=== PATIENT | female | born 1950 | race Caucasian/White ===

== ENCOUNTER 2019-10-30 08:52 | Outpatient (CLI) | payer MEDICARE, SELFPAY ==
--- NOTE | ~2019-10-30 | MM_ITS ---
EXAMINATION: MM screening alhaji BI w leonor HISTORY: Screening mammogram, family history of breast cancer in her mother. TECHNIQUE: Craniocaudal and mediolateral oblique 3-D tomosynthesis images were obtained and synthetic 2-D images were generated. CAD analysis was submitted and interpreted. COMPARISON: 10/23/2018, 02/20/2016, 04/18/2014 BREAST PARENCHYMAL COMPOSITION: There are scattered areas of fibroglandular density. FINDINGS: RIGHT BREAST: There is a possible mass in the middle/posterior third of the outer right breast best a ppreciated 7 cm from the nipple on the craniocaudal view. LEFT BREAST: There is no evidence of suspicious mass, calcification, or architectural distortion to s uggest malignancy. There has been no significant interval change. IMPRESSION: 1. Possible right breast mass. 2. Additional mammographic views and possible breast ultrasound are recommended. BI-RADS Category 0: Incomplete: Needs additional imaging evaluation. Reviewed, dictated and finalized at location A. CING MACHINE OPERATOR IMPRESSION: 1. Possible right breast mass. 2. Additional mammographic views and possible breast ultrasound are recommended . BI-RADS Category 0: Incomplete: Needs additional imaging evaluation.
== END 2019-10-30 08:53 | disposition home or self-care (01) ==
DX: Z12.31 Encounter for screening mammogram for malignant neoplasm of breast (principal); R92.8 Other abnormal and inconclusive findings on diagnostic imaging of breast
CPT/HCPCS: 77063; 77067

== ENCOUNTER 2019-11-06 14:40 | Outpatient (CLI) | payer MEDICARE, SELFPAY ==
--- NOTE | ~2019-11-06 | MM_ITS ---
EXAMINATION: MM diagnostic mammo unilat RT HISTORY: Possible right breast mass in the middle/posterior third of the outer right breast 7 cm from nipple on craniocaudal view reported on 10/30/2019 bilateral digital screening mammogram TECHNIQUE: Additional 3-D tomosynthesis images and rolled medial and rolled lateral craniocaudal view s of the right breast of were performed and synthetic 2-D images were generated. CAD analysis was sub mitted and interpreted. COMPARISON: 10/30/2019 bilateral digital screening mammogram FINDINGS: No suspicious mass or architectural distortion is evident. The questioned mass is not repro duced on these supplemental views. IMPRESSION: 1. No mammographic evidence of malignancy 2. Routine annual mammographic screening is recommended. BI-RADS Category 1: Negative Reviewed, dictated and finalized at location A. BER
== END 2019-11-06 14:41 | disposition home or self-care (01) ==
DX: R92.8 Other abnormal and inconclusive findings on diagnostic imaging of breast (principal)
CPT/HCPCS: 77065

== ENCOUNTER 2020-08-13 09:40 | Outpatient (NON) | payer MEDICARE, SELFPAY ==
[2020-08-13 23:47] LABS: SARS-CoV-2 RNA PCR Negative
== END 2020-08-13 09:41 ==
LOC: ANHCOVIDDT 09:43
PROVIDERS: Visit Provider Family Medicine
DX: R07.89 Other chest pain (principal); Z20.828 Contact with and (suspected) exposure to other viral communicable diseases
CPT/HCPCS: 87635; C9803; U0003

== ENCOUNTER → 2020-11-28 12:20 | Outpatient (CLI) | payer MEDICARE, SELFPAY ==
--- NOTE | ~2020-11-28 | XR_ITS ---
EXAMINATION: XR chest 2V DATE: 11/28/2020 13:22 INDICATION: Shortness of breath. TECHNIQUE: Frontal and lateral views of the chest were obtained. COMPARISON: CT abdomen and pelvis 06/13/2018 FINDINGS: There is mild atelectasis in the lower lung zones. There is mild scarring at right lung ape x. No pleural effusion or pneumothorax. The heart size is normal. IMPRESSION: 1. Mild atelectasis in the lower lung zones and mild scarring at right lung apex. Reviewed, dictated and finalized at location A. L FISHERMAN IMPRESSION: 1. Mild atelectasis in the lower lung zones and mild scarring at right lung ape x.
== END ==
PROVIDERS: PCP Physician Assistant Medical; Visit Provider Physician Assistant Medical
DX: R06.02 Shortness of breath (principal); R91.8 Other nonspecific abnormal finding of lung field
CPT/HCPCS: 71046

== ENCOUNTER 2020-12-06 10:03 | Outpatient (CLI) | payer MEDICARE, SELFPAY ==
--- NOTE | ~2020-12-06 | CT_ITS ---
EXAMINATION: CT chest abdomen wo con DATE: 12/06/2020 16:09 CELL BIOLOGIST INDICATION: Shortness of breath. Cough. Esophageal reflux. TECHNIQUE: Computed tomography (CT) of the chest and abdomen was performed without intravenous contra st. The dose-length product was 327.03 mGy-cm. Automated exposure control and iterative reconstructio n technique were employed. COMPARISON: The dated 06/13/2018 FINDINGS: CHEST CT: Heart size normal. No significant pleural or pericardial effusion. No thoracic lymphadenopathy. There is mild atherosclerosis of the aorta. Calcified granuloma right upper lobe. There is right middle lo be atelectasis/scarring. There is lingular atelectasis. There is dependent atelectasis. There is a 4 mm pleural-based. Fissural nodule on the right, image 65. No endobronchial lesions. ABDOMEN CT: The liver, spleen, pancreas, adrenal glands are unremarkable. There are bilateral renal stones. There are bilateral renal cysts. No definite ureteral stones are identified. Gallbladder is present. Nonob structive bowel gas pattern. No lymphadenopathy. There is a soft tissue nodule in the left upper abdo men adjacent to the fundus of the stomach anteriorly, likely an accessory splenule. Small fat-contain ing umbilical hernia. There is scoliosis. Moderate thoracic and lumbar spondylosis. IMPRESSION: 1. Fissural nodule measuring 4 mm on the right, likely benign. Follow-up low dose CT chest in 12 mk hs recommended. 2: Right middle lobe and lingular atelectasis/scarring. 3: Nonobstructing bilateral nephrolithiasis. 4: Low-density lesions in both kidneys, most likely cysts, visualized on prior CT dated 06/13/2018. 5: Scoliosis with moderate thoracic and lumbar spondylosis. Reviewed, dictated and finalized at location A. BIOLOGIST IMPRESSION: 1. Fissural nodule measuring 4 mm on the right, likely benign. Follow-up low do se CT chest in 12 months recommended. 2: Right middle lobe and lingular atelectasis/scarring. 3: Nonobstructing bilateral nephrolithiasis. 4: Low-density lesions in both kidneys, most likely cysts, visualized on prior CT dated 06/13/2018. 5: Scoliosis with moderate thoracic and lumbar spondylosis.
== END 2020-12-06 10:04 | disposition home or self-care (01) ==
PROVIDERS: PCP Physician Assistant Medical; Visit Provider Physician Assistant Medical
DX: R06.02 Shortness of breath (principal); N20.0 Calculus of kidney; R91.8 Other nonspecific abnormal finding of lung field; M41.9 Scoliosis, unspecified; M47.894 Other spondylosis, thoracic region; M47.896 Other spondylosis, lumbar region
CPT/HCPCS: 71250; 74150

== ENCOUNTER 2020-12-17 08:34 | Outpatient (CLI) | payer MEDICARE, SELFPAY ==
--- NOTE | 2020-12-17 08:39 | EST_ITS ---
Patient Info Name: Myrtle Wells Age: 70 years : 1950 Gender: Female Ht: 64 in Wt: 148 lbs BSA: 1.75 m2 HR: 70 bpm BP: 122 / 86 mmHg Heart Rhythm: Sinus Rhythm Exam Date: 12/17/2020 9:30 AM Exam Location: [facility] Patient Status: Outpatient Admit Date: 12/17/2020 Staff Ordering Physician: Tod Lares PA-C Wool Hat Hydraulicker: Orin Hamilton RDCS Attending Provider: Tod Lares PA-C Exercise Technologist: Ramila Drummond CT Exam Type: CA stress echo Study Info Indications R06.02 - Shortness of breath Treadmill exercise stress echocardiogram is performed. Summary 1. 1. Negative Kelvin exercise stress test for ischemic ST changes by ECG criteria. 2. 2. Mildly reduced functional capacity, achieving 7 METs of workload. 3. 3. Appropriate HR response to exercise. 4. 4. Appropriate HR recovery at 1 minute post exercise. 5. 5. Negative stress echocardiogram for ischemia by wall motion analysis. 6. 6. Patient informed of the above results. Stress Echo Findings Left Ventricle Appropriate increase in LV endocardial thickening with systole. Appropriate augmentation of contractility with systole. No wall motion abnormality. Left Ventricle Normal LV systolic function, no wall motion abnormality. Protocol: Kelvin Stress ECG Details Stage: REST Duration (min): 1 min : 23 sec Speed (mph): 0.0 Grade (%): 0 HR (bpm): 66 SBP (mmHg): 122 DBP (mmHg): 86 METS: --- Stage: REST Duration (min): 17 min : 9 sec Speed (mph): 0.0 Grade (%): 0 HR (bpm): 69 SBP (mmHg): 122 DBP (mmHg): 86 METS: --- Stage: STAGE 1 Duration (min): 1 min : 0 sec Speed (mph): 1.7 Grade (%): 10 HR (bpm): 106 SBP (mmHg): 122 DBP (mmHg): 86 METS: --- Stage: STAGE 1 Duration (min): 2 min : 0 sec Speed (mph): 1.7 Grade (%): 10 HR (bpm): 116 SBP (mmHg): 122 DBP (mmHg): 86 METS: --- Stage: STAGE 1 Duration (min): 3 min : 0 sec Speed (mph): 1.7 Grade (%): 10 HR (bpm): 124 SBP (mmHg): 163 DBP (mmHg): 91 METS: --- Stage: STAGE 2 Duration (min): 1 min : 0 sec Speed (mph): 2.5 Grade (%): 12 HR (bpm): 136 SBP (mmHg): 163 DBP (mmHg): 91 METS: --- Stage: STAGE 2 Duration (min): 2 min : 0 sec Speed (mph): 2.5 Grade (%): 12 HR (bpm): 141 SBP (mmHg): 150 DBP (mmHg): 94 METS: --- Stage: STAGE 2 Duration (min): 2 min : 5 sec Speed (mph): 0.0 Grade (%): 0 HR (bpm): 145 SBP (mmHg): 150 DBP (mmHg): 94 METS: --- Stage: RECOVERY Duration (min): 0 min : 54 sec Speed (mph): 0.0 Grade (%): 0 HR (bpm): 101 SBP (mmHg): 150 DBP (mmHg): 94 METS: --- Stage: RECOVERY Duration (min): 1 min : 54 sec Speed (mph): 0.0 Grade (%): 0 HR (bpm): 90 SBP (mmHg): 150 DBP (mmHg): 94 METS: --- Stage: RECOVERY Duration (min): 2 min : 54 sec Speed (mph): 0.0 Grade
== END 2020-12-17 08:35 | disposition home or self-care (01) ==
PROVIDERS: PCP Physician Assistant Medical; Visit Provider Physician Assistant Medical
DX: R06.02 Shortness of breath (principal)
CPT/HCPCS: 93351

== ENCOUNTER 2021-01-15 07:50 | Outpatient (CLI) | payer MEDICARE, SELFPAY ==
--- NOTE | 2021-01-17 13:27 | WPDPFTINT ---
PFT Interpretation This PFT met all criteria for ATS standards and reproducibility FEV/FVC 65% FEV1 76% FVC 91% TLC 90% RV 89% RV/TLC 43% DLCO when adjusted for alveolar volume but not adjusted for hemoglobin Flow volume loops showed some expiratory coving Impression: [id number] airflow obstruction is present. Unfortunately no bronchodilator challenge was ordered were given. Clinical correlation is advised. PFT Procedure Performed PFT Procedure Performed Plethysmography (Lung Vol) Diffusing Cap (DLCO) Flow Vol Loop Spirometry w/o Bronchodil
== END 2021-01-15 07:51 | disposition home or self-care (01) ==
PROVIDERS: PCP Physician Assistant Medical; Visit Provider Physician Assistant Medical
DX: R06.02 Shortness of breath (principal); R94.2 Abnormal results of pulmonary function studies
CPT/HCPCS: 94375; 94726; 94729

== ENCOUNTER → 2021-12-14 11:38 | Outpatient (CLI) | payer MEDICARE, SELFPAY ==
--- NOTE | ~2021-12-14 | CT_ITS ---
EXAMINATION: CT diagnostic chest wo con DATE: 12/14/2021 11:51 INDICATION: Solitary pulmonary nodule TECHNIQUE: Computed tomography (CT) of the chest was performed without intravenous contrast. The dose -length product (DLP) was 74.60 mGy-cm. Automated exposure control and iterative reconstruction techn ique were employed. COMPARISON: 12/06/2020 FINDINGS: There is chronic mild atelectasis/scarring of the right middle lobe. The lungs are free of focal airspace opacities. No suspicious pulmonary nodule is identified. No pathologically enlarged th oracic lymph nodes are identified. The heart size is normal. Calcified coronary artery atherosclerosi s is noted. There is moderate thoracic spondylosis. IMPRESSION: 1. Chronic atelectasis/scarring of the right middle lobe. No suspicious pulmonary nodules. Reviewed, dictated and finalized at location B. IMPRESSION: 1. Chronic atelectasis/scarring of the right middle lobe. No suspicious pulmona ry nodules.
== END ==
PROVIDERS: PCP Family Medicine; Visit Provider Physician Assistant Medical
DX: R91.1 Solitary pulmonary nodule (principal); I25.10 Atherosclerotic heart disease of native coronary artery without angina pectoris; M47.814 Spondylosis without myelopathy or radiculopathy, thoracic region
CPT/HCPCS: 71250

== ENCOUNTER 2022-03-11 12:38 | Outpatient (CLI) | payer MEDICARE, OTHER, SELFPAY ==
--- NOTE | 2022-03-11 17:32 | WPDSIXMINUTE ---
Six Minute Walk Procedure Procedure Performed Pulmonary Stress Test (6 min walk) Six Minute Walk Six Minute Walk: This is a 6 minute walk test. The test was performed and interpreted in accordance with the 2014 ERS/ATS task force guidelines. Findings: The patient's resting room air oxygen saturation measured by pulse oximetry was 96% and heart rate was 85 bpm. Patient ambulated for 457 meters and oxygen saturation remained 89 to 91%. Heart rate at the end of the study was 104 bpm. The patient did not qualify for supplemental oxygen at rest or with ambulation. There are no prior studies for comparison.
--- NOTE | 2022-03-11 17:34 | P.PCNPFT_ITS ---
PFT Procedure Performed PFT Procedure Performed Spirometry with Pre/Post Bronchodilator Plethysmography (Lung Vol) Diffusing Cap (DLCO) Flow Vol Loop PFT Interpretation This is a pulmonary function test with pre and post-bronchodilator spirometry, plethysmography and diffusing capacity. The test was performed and results interpreted in accordance with the 2019 and 2005 ATS/ERS Task Force guidelines respectively using the Global Lung Function Initiative-2012 reference equations. Patient demonstrated good effort and cooperation. Reproducibility criteria were met. The quality of the pre bronchodilator spirometry maneuver was Grade A and post bronchodilator spirometry maneuver was Grade A. Findings: Spirometry: There is decreased maximal expiratory airflow at low lung volumes with concave expiratory flow tracing. The pre bronchodilator F VC is 2.21 L, 78% predicted. The pre bronchodilator FEV1 is 1.51 L, 69% predicted. The pre bronchodilator FEV1: FVC ratio was 68%. The post bronchodilator FVC is 2.04 L, representing a 8% decrease. The post bronchodilator FEV1 is 1.34 L, representing an 11% decrease. The post bronchodilator FEV1: FVC ratio 66%. Plethysmography: The total lung capacity is 4.45 L, 88% predicted. The functional residual capacity is 2.42 L, 83% predicted. The residual volume is 2.24 L, 101% predicted. Diffusion capacity: The diffusion capacity unadjusted for hemoglobin and carboxyhemoglobin is 11.8, 58% predicted. The diffusing capacity adjusted for alveolar volume is 3.58, 84% predicted. In comparison to previous pulmonary function testing on 01/15/2021 in which only pre bronchodilator spirometry was obtained the pre bronchodilator FVC has decre ased from 2.63 L to 2.21 L. The pre bronchodilator FEV1 is unchanged from 1.71 L to 1.51 L. The total lung capacity is unchanged from 4.57 L to 4.45 L. The functional residual capacity is unchanged from 2.42 L to 2.42 L. The residual volume is increased from 1.94 L to 2.24 L. The diffusing capacity unadjusted for hemoglobin and carboxyhemoglobin is unchanged from 10.9 to 11.8. The diffusing capacity adjusted for alveolar volume is unchanged from 3.98 to 3.58. Impression: There is a moderate obstructive abnormality without significant improvement after inhaling a single dose of albuterol. The lung volumes are normal. The diffusing capacity unadjusted for hemoglobin and carboxyhemoglobin is moderately decreased and normalizes when adjusted for alveolar volume. In comparison to previous pulmonary function testing on 01/15/2021 there has been a greater than anticipated time dependent decrease in the pre bronchodilator FVC and a greater than anticipated time dependent increase in the residual volume with no change in the pre bronchodilator FEV1, total lung capacity, functional residual capacity and diffusing capacity. Clinical correlation is recommended.
== END 2022-03-11 12:39 | disposition home or self-care (01) ==
PROVIDERS: PCP Family Medicine; Visit Provider Internal Medicine Pulmonary Disease
DX: J40 Bronchitis, not specified as acute or chronic (principal); R06.00 Dyspnea, unspecified; Z72.0 Tobacco use; R94.2 Abnormal results of pulmonary function studies
CPT/HCPCS: 94060; 94618; 94726; 94729

== ENCOUNTER 2022-12-07 00:39 | Day surgery (SDC) | payer MEDICARE, OTHER, SELFPAY ==
[2022-11-25 14:38] VITALS: BMI 24.5
[2022-12-07 07:54] VITALS: BP 110/73; PULSE 87; RESP 16; TEMP 36.1; O2SAT 98
[2022-12-07] MEDS: LACTATED RINGERS 1,000 ML 150 ML IV CONT (08:01)
--- NOTE | 2022-12-07 08:30 | PM.HPGS ---
History of Present Illness History of Present Illness Consent: Risks, benefits, and alternatives have been discussed and questions answered. Patient agrees to proceed with procedure. Chief complaint: neoplasm screening Narrative: Myrtle Wells is a 72 year old female Presents for screening colonoscopy. Patient's current weight appetite and bowel movements are normal. Patient denies abdominal pain. She has had no bleeding. Family history noncontributory. Patient has colonoscopy 2012 was unremarkable. In 2018 she had C diff which has improved many years ago. Her current weight appetite bowel movements are normal. Review of Systems Review of Systems: Review of systems noncontributory. [facility] Surgical History Surgical History History of cataract surgery (~03/26/21) Family History Family History Mother Family history of malignant neoplasm of breast in first degree relative Other Family history of malignant neoplasm of breast Social History Social History Smoking status: Never smoker Alcohol intake: current Alcohol use details: social Substance use type: does not use Lack of Transportation: No Lack of Food: Never True Current Housing: I Have Housing Concerned About Future Housing: No Difficulty Paying Gas/Electric Bills: No Difficulty Paying for Meds: No Currently Unemployed: No Education: High School Diploma/GED Difficulty w/ Childcare or Family Care: No Living arrangements: with family Spiritual care concerns: No Meds Home Medications and Allergies Home Medications Medication Instructions Recorded Confirmed Type multivitamin 1 tablet PO DAILY 02/28/20 11/25/22 History ibuprofen 200 mg tablet 200 mg PO QPM PRN Pain 07/22/21 11/25/22 History alprazolam 0.25 mg tablet 0.25 mg PO QHS PRN Anxiety 02/17/22 11/25/22 History calcium carbonate 600 mg calcium 600 mg PO DAILY 02/17/22 11/25/22 History (1,500 mg) tablet (Calcium) escitalopram oxalate 20 mg tablet 20 mg PO DAILY #90 tabs 09/15/22 11/25/22 Rx omeprazole 20 mg capsule,delayed 20 mg PO DAILY #90 caps 12/21/22 03/02/23 Rx release albuterol sulfate 90 mcg/actuation 2 inh inhalation Q4H PRN shortness 11/18/22 11/25/22 Rx aerosol inhaler of breath or wheezing #8.5 grams sumatriptan succinate 100 mg tablet See Rx Instructions PO .COMPLEX 11/18/22 11/25/22 Rx PRN migraine headache #9 tabs cholecalciferol (vitamin D3) 25 25 mcg PO DAILY 11/25/22 11/25/22 History mcg (1,000 unit) tablet (Vitamin D3) Allergies Allergy/AdvReac Type Severity Reaction Status Date / Time No Known Allergies Allergy Verified 12/07/22 07:50 Vital Signs Vital Signs - 24 hr 12/07/22 07:54 Temperature 97.0 F L Pulse Rate 87 Respiratory Rate 16 Blood Pressure 110/73 Pulse Oximetry 98 Oxygen Delivery Room Air Exam Narrative: Physical exam reveals patient to be alert. Vital signs stable. HEENT exam is unremarkable. Patient is anicteric. Lungs are clear to auscultation and percussion. Heart is without murmur or extra sounds. Abdomen bowel sounds are present soft nontender with no organomegaly. Digital external rectal exam is normal. Assessment and Plan Assessment and plan (1) Screening for colon cancer: Code(s): Z12.11 - Encounter for screening for malignant neoplasm of colon Status: Acute Assessment and Plan: Patient presents for screening colonoscopy. She appears to be at average risk for colon polyps. Further recommendations may be given after endoscopy.
--- NOTE | 2022-12-07 08:49 | WPDANESEPPF ---
Anes - Initial Pre Proc Eval Procedure: Operation Date: 12/07/22 09:00 Proposed Procedures p Screening Colonoscopy - León Corbett MD Date/Time: 12/07/22 08:49 Surgeon: León Corbett MD Pre Op Diagnosis: neoplasm screening Patient Data Age: 72 Gender: F Height: 1.63 m Weight: 65.1 kg Last Vital Signs Temp 97.0 F L 12/07/22 07:54 Pulse 87 12/07/22 07:54 Resp 16 12/07/22 07:54 BP 110/73 12/07/22 07:54 Pulse Ox 98 12/07/22 07:54 O2 Del Method Room Air 12/07/22 07:54 Allergies Allergy/AdvReac Type Severity Reaction Status Date / Time No Known Allergies Allergy Verified 12/07/22 07:50 Home Medications Medication Instructions Recorded Confirmed Type multivitamin 1 tablet PO DAILY 02/28/20 11/25/22 History ibuprofen 200 mg tablet 200 mg PO QPM PRN Pain 07/22/21 11/25/22 History alprazolam 0.25 mg tablet 0.25 mg PO QHS PRN Anxiety 02/17/22 11/25/22 History calcium carbonate 600 mg calcium 600 mg PO DAILY 02/17/22 11/25/22 History (1,500 mg) tablet (Calcium) escitalopram oxalate 20 mg tablet 20 mg PO DAILY #90 tabs 09/15/22 11/25/22 Rx omeprazole 20 mg capsule,delayed 20 mg PO DAILY #90 caps 09/15/22 11/25/22 Rx release albuterol sulfate 90 mcg/actuation 2 inh inhalation Q4H PRN shortness 11/18/22 11/25/22 Rx aerosol inhaler of breath or wheezing #8.5 grams sumatriptan succinate 100 mg tablet See Rx Instructions PO .COMPLEX 11/18/22 11/25/22 Rx PRN migraine headache #9 tabs cholecalciferol (vitamin D3) 25 25 mcg PO DAILY 11/25/22 11/25/22 History mcg (1,000 unit) tablet (Vitamin D3) Patient hx anesthesia problems: none Family hx anesthesia problems: none Results Review: All pre-operative results and documents have been reviewed as part of the pre-operative evaluation. [facility] Surgical History Surgical History History of cataract surgery (~03/26/21) Family History Family History Mother Family history of malignant neoplasm of breast in first degree relative Other Family history of malignant neoplasm of breast Social History Social History Smoking status: Never smoker Alcohol intake: current Alcohol use details: social Substance use type: does not use Lack of Transportation: No Lack of Food: Never True Current Housing: I Have Housing Concerned About Future Housing: No Difficulty Paying Gas/Electric Bills: No Difficulty Paying for Meds: No Currently Unemployed: No Education: High School Diploma/GED Difficulty w/ Childcare or Family Care: No Living arrangements: with family Spiritual care concerns: No Anes - Eval Final PreProcedure Day of Procedure 12/07/22 08:49 Patient weight: normal Heart: regular rate and rhythm Lungs: clear to auscultation Airway: Mallampati scale class II Neurological: alert and oriented Last oral intake: >/= 8 hours ASA classification: II Emergent: no Anesthetic plan: proceed Anesthesia type and monitoring: general GIVS and standard monitoring Results Review: All pre-operative results and documents have been reviewed as part of the pre-operative evaluation. Informed Consent: The patient's anesthetic plan and its attendant risks and benefits were discussed with the patient/family/POA. Questions were solicited and answers provided to the satisfaction of the patient/family/POA.
[2022-12-07 09:30] VITALS: BP 111/76; PULSE 66; RESP 22; O2SAT 100
[2022-12-07 09:40] VITALS: BP 112/65; PULSE 58; RESP 19; O2SAT 100
[2022-12-07 09:50] VITALS: BP 118/70; PULSE 55; RESP 20; O2SAT 100
== END 2022-12-07 09:57 | disposition home or self-care (01) ==
PROVIDERS: PCP Family Medicine; Visit Provider Internal Medicine Gastroenterology
PROC: 0DJD8ZZ Inspection of Lower Intestinal Tract, Via Natural or Artificial Opening Endoscopic (ICD-10-PCS; CPT 45378; principal; 2022-12-07 09:00)
DX: Z12.11 Encounter for screening for malignant neoplasm of colon (principal); K64.8 Other hemorrhoids; K57.30 Diverticulosis of large intestine without perforation or abscess without bleeding
CPT/HCPCS: G0121; J2704; J7120

== ENCOUNTER → 2023-03-04 13:10 | Outpatient (CLI) | payer MEDICARE, OTHER, SELFPAY ==
--- NOTE | ~2023-03-04 | DEXA_ITS ---
Bone Density Report Name: BLAIR ELIZONDO Age: 73 Sex: Female Ethnicity: White Date of : 1950 Indication: osteopenia; height loss; asthma or emphysema; hysterectomy; postmenopausal Referring Provider: Margie Gallegos Study: Bone densitometry was performed. Exam Date: March 04, 2023 Accession number: [id number] Bone Density: Region BMD T-score Z-score Classification AP Spine (L1, L4) 0.884 -1.4 0.8 Osteopenia Femoral Neck (Left) 0.544 -2.7 -0.8 Osteoporosis Total Hip (Left) 0.712 -1.9 -0.3 Osteopenia Femoral Neck (Right) 0.543 -2.8 -0.8 Osteoporosis Total Hip (Right) 0.695 -2.0 -0.4 Osteopenia Total Hip Mean 0.704 -2.0 -0.4 Osteopenia World Health Organization criteria for BMD impression classify patients as: Normal (T-score at or above -1.0), Osteopenia (T-score between -1.0 and -2.5), or Osteoporosis (T-score at or below -2.5). 10-year Fracture Risk: FRAX not reported because: Some T-score for Spine Total or Hip Total or Femoral Neck at or below -2.5 Previous Exams: Region Exam Age BMD T-score BMD Change BMD Change Date g/cm2 vs Baseline vs Previous AP Spine(L1, L4) 03/04/2023 73 0.884 -1.4 0.089* 0.089* 09/01/2016 66 0.795 -2.2 Total Hip(Left) 03/04/2023 73 0.712 -1.9 -0.003 -0.003 09/01/2016 66 0.716 -1.9 Total Hip(Right) 03/04/2023 73 0.695 -2.0 -0.032* -0.032* 09/01/2016 66 0.727 -1.8 *Denotes significance at 95% confidence level, LSC for AP Spine = 0.022 g/cm2, LSC for Total Hip = 0.027 g/cm2 Clinical Information Provided by Patient: Has used the following medications: Vitamin D, Calcium, MTV Has the following medical conditions: Asthma or Emphysema, Hysterectomy Patient maximum height was 65.5 Menopause Age: 37 No regular weight bearing exercise Does not regularly consume dairy products Drinks caffeinated beverages Onset of menses at age 15 Number of children 2 Impression: The patient has osteoporosis, based on the Right Femoral Neck T-score. The BMD for the Total Hip(Right) decreased, changing by -0.032 since the last DXA exam. Discussion: INCREASED RISK OF FRACTURE. BONE DENSITY IS UNDESIRABLY LOW AT ONE OR MORE SKELETAL SITES, CONSISTENT WITH POSTMENOPAUSAL OSTEOPOROSIS. This patient's lowest T-score meets the World Health Organization's (WHO) criteria for osteoporosis at one or more sites (T-score -2.5 or below). In untreated patients, the risk of osteoporot
--- NOTE | ~2023-03-04 | MM_ITS ---
EXAMINATION: MM screening alhaji BI w leonor HISTORY: Screening TECHNIQUE: Craniocaudal and mediolateral oblique 3-D tomosynthesis images were obtained and synthetic 2-D images were generated. CAD analysis was submitted and interpreted. COMPARISON: Comparison to multiple prior studies sequentially, with oldest reviewed study dated 04/18. BREAST PARENCHYMAL COMPOSITION: There are scattered areas of fibroglandular density. FINDINGS: There is no evidence of suspicious mass, calcification, or architectural distortion to sugg est malignancy in either breast. There has been no suspicious interval change. IMPRESSION: 1. No mammographic evidence of malignancy. 2. Recommend routine screening mammography in one year. BI-RADS Category 1: Negative Reviewed, dictated and finalized at location A.
== END ==
PROVIDERS: PCP Family Medicine; Visit Provider Family Medicine
DX: Z12.31 Encounter for screening mammogram for malignant neoplasm of breast (principal); Z78.0 Asymptomatic menopausal state; M85.88 Other specified disorders of bone density and structure, other site; M81.0 Age-related osteoporosis without current pathological fracture; M85.852 Other specified disorders of bone density and structure, left thigh; M85.851 Other specified disorders of bone density and structure, right thigh
CPT/HCPCS: 77063; 77067; 77080

== ENCOUNTER 2023-09-20 11:27 | Emergency (ER) | payer MEDICARE, OTHER, SELFPAY ==
--- NOTE | ~2023-09-20 | CT_ITS ---
EXAMINATION: CT abdomen pelvis w con DATE: 09/20/2023 17:11 INDICATION: Lower abdominal pain TECHNIQUE: Computed tomography (CT) of the abdomen and pelvis was performed with 100 mL Omnipaque-350 intravenous contrast. Automated exposure control and iterative reconstruction technique were employe d. The dose-length product was 447.16 mGy-cm. COMPARISON: 12/06/2020 FINDINGS: Mild dependent atelectasis in the bilateral lower lobes. Heart size is normal. No pericardial or pleu ral effusion. Liver, gallbladder, spleen, pancreas, bilateral adrenal glands are normal. There are bi lateral renal cysts, the largest a Bosniak 2 cyst with partially calcified but otherwise nearly indis cernible internal septation at the lower pole the right kidney measuring up to 3.1 cm. There are few scattered colonic diverticula without adjacent from . Stranding to suggest diverticulitis. Small sasha l and appendix are normal. Small fat-containing umbilical hernia. Bladder is normal. The uterus is no t identified and has likely been surgically resected. No free intraperitoneal gas or fluid. No pathol ogically enlarged abdominal or pelvic lymphadenopathy. Lumbar dextroscoliosis with severe spondylosis . L5-S1 combined anterior and instrumented posterior spinal fusion with bilateral vertical marguerite and pe dicle screw fixation. IMPRESSION: 1. No acute intra-abdominal/pelvic process. 2. Small fat-containing umbilical hernia. Reviewed, dictated and finalized at location A. NG BLOWER
[2023-09-20 11:28] VITALS: BP 153/92; PULSE 78; RESP 16; TEMP 36.6; O2SAT 96
[2023-09-20 11:51] LABS: Appearance Urine Clear (Clear); Bilirubin Urine Negative (Negative); Blood Urine Negative (Negative); Color Urine Yellow (Yellow); Glucose Urine UA Negative (Negative); Ketones Urine Negative (Negative); Leukocyte Esterase Ur Trace LEU/UL (Negative); Nitrate Urine Negative (Negative); Protein Urine Negative (Negative); Specific Grav Ur 1.006 (1.001-1.035); Urobilinogen Urine 0.2 mg/dL (<2.0); pH Urine 6.5 (5.0-9.0)
[2023-09-20 12:06] LABS: Add Urine Microscopic? YES
[2023-09-20 12:08] LABS: RBC Urine 0-2 /hpf (0-2); WBC Urine 0-3 /hpf
[2023-09-20 12:09] LABS: Squamous Epithelial Cell Urine Few /hpf (Few)
[2023-09-20 16:21] VITALS: BP 141/83; PULSE 78; RESP 18; O2SAT 97
[2023-09-20 16:31] LABS: Basophils Percent Auto 0.5 % (0.2-1.2); Eosinophils Percent Auto 0.5 % (0-4.4); Hematocrit 43.3 % (37.0-47.0); Hemoglobin 13.6 g/dL (12.0-15.0); Immature Granulocyte Absolute 0.01 K/mm3 (0.00-0.031); Immature Granulocyte Percent A 0.2 % (0-0.5); Lymphocytes Absolute Auto 1.02 K/mm3 (0.9-3.2); Lymphocytes Percent Auto 24.1 % (18.3-44.2); Mean Corpuscular HGB Conc 31.4 g/dl (32-36); Mean Corpuscular Volume 92.3 fl (80-100); Mean Platelet Volume 10.4 fl (7.4-10.4); Monocytes Absolute Auto 0.5 K/mm3 (0.1-0.6); Monocytes Percent Auto 12.3 % (2.6-8.5); Neutrophils Absolute Auto 2.6 K/mm3 (1.3-6.7); Neutrophils Percent Auto 62.4 % (45.5-73.1); Platelet Count Result 203 k/mm3 (150-375); Red Blood Count 4.69 M/mm3 (4.2-5.4); Red Cell Distribution Width 13.2 % (11.5-14.5); White Blood Count 4.2 K/mm3 (4.5-10.0)
--- NOTE | 2023-09-20 16:35 | ED.ABDPAIN ---
HPI - Abdominal Pain General Chief Complaint: Abdominal Pain Stated Complaint: abd pain x 9days Time Seen by Provider: 09/20/23 16:16 Source: patient, RN notes reviewed and old records reviewed Mode of arrival: ambulatory Limitations: no limitations History of Present Illness HPI narrative: This is a 73 year old female who presents for evaluation of lower abdominal pain. Patient states she developed lower abdominal pain 9 days ago . She reports pain is worse with sitting up. She reports she feels more pressure in her lower abdomen. She also reports increased urinary frequency. She denies nausea, vomiting, diarrhea, dysuria, fever. Her last bowel movement was yesterday and it was normal. She rates her pain as 2/10 currently. Related Data Home Medications Medication Instructions Recorded Confirmed multivitamin 1 tablet PO DAILY 02/28/20 03/24/23 ibuprofen 200 mg tablet 200 mg PO QPM PRN Pain 07/22/21 03/24/23 alprazolam 0.25 mg tablet 0.25 mg PO QHS PRN Anxiety 02/17/22 03/24/23 calcium carbonate 600 mg calcium 600 mg PO DAILY 02/17/22 03/24/23 (1,500 mg) tablet (Calcium) cholecalciferol (vitamin D3) 25 25 mcg PO DAILY 11/25/22 03/24/23 mcg (1,000 unit) tablet (Vitamin D3) Allergies Allergy/AdvReac Type Severity Reaction Status Date / Time No Known Allergies Allergy Verified 09/20/23 16:23 Review of Systems Review of Systems: All systems reviewed & are unremarkable except as noted in HPI and below Constitutional: Constitutional: Denies weakness Cardiovascular: Cardiovascular: Denies syncope, Denies rapid heart rate, Denies irregular heart rhythm, Denies leg edema and Denies dyspnea Respiratory: Respiratory: Denies chest congestion, Denies hemoptysis, Denies excessive phlegm production and Denies dyspnea Gastrointestinal: Gastrointestinal: Reports abdominal pain, Denies hematochezia, Denies diarrhea and Denies vomiting Genitourinary: Genitourinary: Denies hematuria, Reports nocturia and Denies dysuria Musculoskeletal: Musculoskeletal: Denies joint swelling, Denies loss of height and Denies muscle weakness Neurologic: Denies syncope, Denies focal weakness and Denies weakness PMFSH Past Medical History Medical History (Updated 09/20/23 @ 17:57 by Jessica Joseph MD) Colitis Mixed hyperlipidemia Surgical History Surgical History History of cataract surgery (~03/26/21) Family History Family History Mother Family history of malignant neoplasm of breast in first degree relative Other Family history of malignant neoplasm of breast Social History Social History Smoking status: Never smoker Alcohol intake: current Alcohol use details: social Substance use type: does not use Lack of Transportation: No Lack of Food: Never True Current Housing: I Have Housing Concerned About Future Housing: No Difficulty Paying Gas/Electric Bills: No Difficulty Paying for Meds: No Currently Unemployed: No Education: High School Diploma/GED Difficulty w/ Childcare or Family Care: No Living arrangements: with family Spiritual care concerns: No Exam Const: General: no acute distress and alert Nutritional Appearance: well nourished Orientation/consciousness: patient oriented x3 HENMT: Head: normal to inspection Mouth: Yes Normal oral and palatal mucosa present, Yes lip normal and Yes moist mucous membranes Throat: posterior oropharynx normal and uvula midline Eyes: EOM: EOMs intact bilaterally Chest: Chest palpation & inspection: normal inspection of the chest Resp: Effort & Inspection: normal respiratory effort Auscultation: clear to auscultation bilaterally Cardio: Rate: regular rate Rhythm: regular rhythm Heart sounds: no murmurs GI: GI Palp: Yes Soft to palpation, Yes Tenderness to palpation prese
[2023-09-20 16:39] LABS: Alanine Aminotransferase 24 U/L (6-35); Albumin Level 4.7 g/dL (3.5-5.1); Alkaline Phosphatase 73 U/L (38-126); Anion Gap 10 mmol/L (8-16); Aspartate Amino Transferase 30 U/L (14-36); Bilirubin,Total 0.7 mg/dL (0.2-1.3); Blood Urea Nitrogen 11 mg/dL (7-17); Calcium 9.3 mg/dL (8.4-10.2); Carbon Dioxide 26 mmol/L (22-30); Chloride 103 mmol/L (98-107); Estimated CRCL calculation 67 ml/min; Estimated Glomerular Filt Rate > 60; Glucose 98 mg/dL (65-110); Lipase 77 U/L (23-300); Sodium 139 mmol/L (137-145)
[2023-09-20] MEDS: LACTATED RINGERS 1,000 ML 999 ML IV CONT (16:50)
[2023-09-20 17:20] VITALS: BP 128/67; PULSE 72; RESP 18; O2SAT 97
[2023-09-20 18:11] VITALS: BP 130/66; PULSE 66; RESP 18; TEMP 36.6; O2SAT 97
== END 2023-09-20 18:12 | disposition home or self-care (01) ==
PROVIDERS: Emergency Medicine; Emergency Provider General Practice; PCP Family Medicine
DX: R10.30 Lower abdominal pain, unspecified (principal); K42.9 Umbilical hernia without obstruction or gangrene; Z79.51 Long term (current) use of inhaled steroids
CPT/HCPCS: 36415; 74177; 80053; 81001; 83690; 85025; 96360; 99284; J7120; Q9967

== ENCOUNTER 2024-08-24 09:58 | Outpatient (CLI) | payer MEDICARE, OTHER, SELFPAY ==
--- NOTE | ~2024-08-24 | MM_ITS ---
EXAMINATION: MM screening alhaji BI w leonor HISTORY: Screening TECHNIQUE: Craniocaudal and mediolateral oblique 3-D tomosynthesis images were obtained and synthetic 2-D images were generated. CAD analysis was submitted and interpreted. COMPARISON: Comparison to multiple prior studies sequentially, with oldest reviewed study dated 02/19. BREAST PARENCHYMAL COMPOSITION: Not dense: There are scattered areas of fibroglandular density. FINDINGS: There is no evidence of suspicious mass, calcification, or architectural distortion to sugg est malignancy in either breast. There has been no suspicious interval change. IMPRESSION: 1. No mammographic evidence of malignancy. 2. Recommend routine screening mammography in one year. BI-RADS Category 1: Negative Reviewed, dictated and finalized at location [] OR RESEARCH ENGINEER
== END 2024-08-24 09:59 | disposition home or self-care (01) ==
LOC: MICIMG 09:59
PROVIDERS: PCP Family Medicine; Visit Provider Nurse Practitioner
DX: Z12.31 Encounter for screening mammogram for malignant neoplasm of breast (principal)
CPT/HCPCS: 77063; 77067

== ENCOUNTER 2024-08-27 11:14 | Outpatient (CLI) | payer MEDICARE, OTHER, SELFPAY ==
--- NOTE | ~2024-08-27 | XR_ITS ---
Clinical Indication: Shortness of breath PA and lateral views of the chest: Comparison: 11/28/2020 Findings: The lungs are clear, without evidence of focal consolidation or pleural effusion. Cardiome diastinal silhouette is within normal limits. Bones and soft tissues are unremarkable. Impression: Normal chest. Reviewed, dictated and finalized at location . RONMENTAL SCIENCES PROFESSOR Impression: Normal chest.
== END 2024-08-27 11:15 | disposition home or self-care (01) ==
PROVIDERS: PCP Nurse Practitioner; Visit Provider Family Medicine
DX: R06.02 Shortness of breath (principal)
CPT/HCPCS: 71046

== ENCOUNTER 2024-09-10 12:21 | Outpatient (CLI) | payer MEDICARE, OTHER, SELFPAY ==
--- NOTE | 2024-09-10 12:49 | ECHO_ITS ---
Patient Info Name: Myrtle Wells Age: 74 years : 1950 Gender: Female Ht: 64 in Wt: 145 lbs BSA: 1.73 m2 HR: 56 bpm BP: 135 / 95 mmHg Technical Quality: Fair Exam Date: 09/10/2024 12:57 PM Exam Location: Echo Lab Patient Status: Outpatient Admit Date: 09/10/2024 Staff Ordering Physician: Margie Gallegos DO Advertising Solicitor: Ella Coppola RDCS Attending Provider: Margie Gallegos DO Referring Physician: El GIRARD; Exam Type: CA echo dop color flow w con Study Info Indications R06.02 - Shortness of breath Complete two-dimensional, color flow and Doppler transthoracic echocardiogram is performed with contrast to opacify the left ventricle and to improve the deliniation of the left ventricle endocardial borders. Strain analysis performed. Contrast/Agitated Saline Contrast/Ag. Saline: Definity Amount: 4.00 ml Administered By: Ella Coppola RDCS New IV Access: Antecubital Space and Left Site Condition: No extravasation, Site dressing applied and IV removed Summary 1. Definity contrast administered improved wall motion interpretation. 2. 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 Less likely apical thrombus. 3. Left ventricular chamber dimension is normal. 4. Left ventricular systolic function is normal, estimated at 60-65%. 5. The left ventricular diastolic function is grade I diastolic dysfunction. 6. E/e' 9 is minimally elevated. 7. Global longitudinal strain is normal at -17.6%. 8. Left atrial chamber dimension is mildly enlarged. 9. There is trace tricuspid valve regurgitation. 10. No pulmonary hypertension, estimated pulmonary arterial systolic pressure is 21 mmHg. Left Ventricle E/e' 9 is minimally elevated. Global longitudinal strain is normal at -17.6%. Definity contrast administered improved wall motion interpretation. 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 Less likely apical thrombus. Left ventricular chamber dimension is normal. Left ventricular systolic function is normal, estimated at 60-65%. The left ventricular diastolic function is grade I diastolic dysfunction. Right Ventricle Right ventricular chamber dimension is normal. Right ventricular systolic function is normal. Left Atria Left atrial chamber dimension is mildly enlarged. Right Atria Right atrial chamber dimension is normal. Aortic Valve The aortic valve is trileaflet. There is no aortic valve stenosis. There is no aortic valve regurgitation. Pulmonic Valve There is no pulmonic regurgitation. Mitral Valve There is no mitral valve stenosis. There is no mitral valve regurgitation. Tricuspid Valve There is trace tricuspid valve regurgitation. No pulmonary hypertension, estimated pulmonary arterial systolic pressure is 21 mmHg. Pericardium/Pleural There is no pericardial effusion. Inferior Vena Cava Normal inferior vena cava with >50% collapse upon inspiration consistent with normal right atrial pressure, 5 mmHg. Aorta The aortic root size at the sinus of Valsalva is normal. Left Ventricular Outflow Tract Name Value Normal LVOT 2D LVOT Diameter 1.97 cm LVOT Doppler LVOT Peak Gradient 4 mmHg LVOT Mean Gradient 2 mmHg LVOT VTI 22.91 cm LVOT VTI/AV VTI Ratio 0.81 LVOT Stroke Volume 69.45 ml LVOT CO 4.19 l/min LVOT CI 2.42 L/min/m2 Pulmonic Valve Name Value Normal RVOT Doppler RVOT Peak Gradient 2 mmHg PV Doppler PV Peak Gradient 2 mmHg Mitral Valve Name Value Normal MV Doppler MV Decel Carbon 247.71 cm/s2 MV PHT 0 s MV Area (PHT) 3.69 cm2 4.00-5.00 MV Diastolic Function MV E Peak Velocity 50.94 cm/s MV A Peak Velocity 99.73 cm/s MV E/A 0.51 MV Decel Time 0 s Tricuspid Valve Name Value Normal TV Regurgitation Doppler TR Peak Velocity 197.69 cm/s TR Peak Gradient 16 mmHg Estimated PAP/RSVP RA Pressure 5 mmHg <=5 PA Systolic Pressure 21 mmHg <36 RV Systolic Pressure 21 mmHg <36 Aorta Name Value Normal Ascending Aorta Ao Root Diameter (MM) 3.61 cm Ao Root Diam Index (MM) 2.08 cm/m2 Aortic Valve Name Value Normal AV Doppler AV Peak Velocity 123.33 cm/s AV Peak Gradient 6 mmHg AV Mean Gradient 4 mmHg AV VTI 28.37 cm AV Area (Cont Eq VTI) 2.45 cm2 >=3.00 AV Area (Cont Eq Trace) 2.41 cm2 AV Regurgitation 2D LVOT Area 3.03 cm2 AV Regurgitation Doppler AR Decel Time 3 s AR Decel Carbon 103.05 cm/s2 AR PHT 1 s Ventricles Name Value Normal LV Dimensions 2D/MM IVS Diastolic Thickness (2D) 0.75 cm 0.60-1.00 IVS Diastole Thickness (MM) 0.92 cm 0.60-0.90 LVID Diastole (2D) 4.47 cm 3.80-5.20 LVID Diastole (MM) 4.81 cm 3.80-5.20 LVIW Diastolic Thickness (2D) 1.00 cm 0.60-0.90 LVIW Diastolic Thickness (MM) 0.89 cm 0.60-0.90 LVID Systole (2D) 2.98 cm 2.20-3.50 LVID Systole (MM) 2.88 cm 2.20-3.50 LVOT Diameter 1.97 cm LV Mass (2D Cubed) 126.39 g 67.00-162.00 LV Mass Index (2D Cubed) 0.01 g/cm2 0.00-0.01 Relative Wall Thickness (2D) 0.45 LV Mass (MM Cubed) 149.03 g 67.00-162.00 LV Mass Index (MM Cubed) 0.01 g/cm2 0.00-0.01 Relative Wall Thickness (MM) 0.37 LV Fractional Shortening/Ejection Fraction 2D/MM LV Fractional Shortening (2D) 33 % 27-45 LV Fractional Shortening (MM) 40 % 27-45 LV EF (MM Teicholz) 71 % 54-74 LV EF (2D Teicholz) 62 % 54-74 LV Diastolic Volume (4C MOD) 90.77 ml LV EF (4C MOD) 56 % LV Diastolic Volume (2C MOD) 92.42 ml LV EF (2C MOD) 61 % LV Diastolic Volume (BP MOD) 92.98 ml 46.00-106.00 LV Diastolic Volume Index (BP MOD) 0.05 l/m2 0.03-0.06 LV Systolic Volume (BP MOD) 37.90 ml 14.00-42.00 LV Systolic Volume Index (BP MOD) 0.02 l/m2 0.01-0.02 LV EF (BP MOD) 59 % 54-74 LV Diastolic Length (4C) 7.41 cm LV Systolic Length (4C) 6.27 cm LV Stroke Volume (4C MOD) 50.80 ml Atria Name Value Normal LA Dimensions LA Dimension (MM) 3.58 cm 2.70-3.80 LA Volume (4C A-L) 22.71 ml LA Volume (BP A-L) 28.14 ml RA Dimensions RA Area (4C) 12.80 cm2 <=18.00 EchoPAC Name Value Normal AutoEF LVCO_BiP_Q (Wfrk9UVL) 3.28 l/min LVEF_BiP_Q (Okpa0DCK) 60 % LVSV_BiP_Q (Fzah3HZJ) 55.71 ml LVVED_BiP_Q (Qhdx2MKA) 92.53 ml LVVES_BiP_Q (Klcb9YIH) 36.82 ml HR_4Ch_Q (Tmfh9WOQ) 59 1/min LVCO_4Ch_Q (Qhrq0ZKI) 3.14 l/min LVEF_4Ch_Q (Mtkk9EYZ) 61 % LVLd_4Ch_Q (Hyol8UOW) 6.85 cm LVLs_4Ch_Q (Tnid9KXI) 5.79 cm LVSV_4Ch_Q (Rtxp8ETU) 53.53 ml LVVED_4Ch_Q (Awjy6DOP) 87.60 ml LVVES_4Ch_Q (Bopc2RKM) 34.07 ml HR_2Ch_Q (Mkyr2XKW) 61 1/min LVCO_2Ch_Q (Ilbs9JNN) 3.42 l/min LVEF_2Ch_Q (Umph9JKJ) 58 % LVLd_2Ch_Q (Dpec0XCY) 7.19 cm LVLs_2Ch_Q (Izul9NJI) 6.10 cm LVSV_2Ch_Q (Firl7ATY) 55.89 ml LVVED_2Ch_Q (Ypac1AUN) 95.91 ml LVVES_2Ch_Q (Thav1SSA) 40.02 ml ALE AA peak sys SL (AWMA) 14 % AAS peak sys SL (AWMA) 24 % AI peak sys SL (AWMA) 17 % AL peak sys SL (AWMA) 19 % AP peak sys SL (AWMA) 27 % peak sys SL (AWMA) 19 % AVC (AWMA) 1 s BA peak sys SL (AWMA) 23 % BAS peak sys SL (AWMA) 14 % BI peak sys SL (AWMA) 15 % BL peak sys SL (AWMA) 21 % BP peak sys SL (AWMA) 18 % BS peak sys SL (AWMA) 16 % G peak SL(A2C) (AWMA) 17 % G peak SL(A4C) (AWMA) 17 % G peak SL(APLAX) (AWMA) 19 % G peak SL(Avg) (AWMA) 18 % MA peak sys SL (AWMA) 18 % MAS peak sys SL (AWMA) 19 % KS peak sys SL (AWMA) 17 % ML peak sys SL (AWMA) 20 % MP peak sys SL (AWMA) 18 % MS peak sys SL (AWMA) 14 % Report Signatures
[2024-09-10] MEDS: PERFLUTREN LIPID MICROSPHERES 1.5 ML VIAL DILUTED TO 10 ML TOTAL VOLUME IV PUSH (13:50)
--- NOTE | 2024-09-10 14:58 | IVDEFINITY ---
Prior to administration of IV Definity the patient was educated on the risks and benefits of the imaging enhancing agent including potential adverse side effects. The patient verbalized understanding. Allergies were verified. No exclusion criteria were identified and at least one of the following inclusion criteria were met: 1) physician request, 2) patient technically difficult to image (per the [place] [employer] Echocardi[employer] guidelines of two or more segments not discernable within the apical view), or 3) questionable left ventricular function. ?
== END 2024-09-10 12:22 | disposition home or self-care (01) ==
PROVIDERS: PCP Family Medicine; Visit Provider Family Medicine
DX: I51.89 Other ill-defined heart diseases (principal)
CPT/HCPCS: C8929; Q9957

== ENCOUNTER 2024-11-06 09:30 | Outpatient (CLI) | payer MEDICARE, OTHER, SELFPAY ==
--- NOTE | 2024-11-06 09:46 | EST_ITS ---
Patient Info Name: Myrtle Wells Age: 74 years : 1950 Gender: Female Ht: 64 in Wt: 145 lbs BSA: 1.73 m2 Technical Quality: Good Exam Date: 11/06/2024 9:52 AM Exam Location: Echo Lab Patient Status: Outpatient Admit Date: 11/06/2024 Staff Ordering Physician: David Whaley DO Senior Validation Engineer: Ella Coppola RDCS Attending Provider: DR. WHALEY Referring Physician: Yung SALTER; Exercise Technologist: Betty Rowan RDCS Exercise Physician: David Whaley DO Exam Type: CA stress echo Study Info Indications R07.9 - Chest pain, unspecified Treadmill exercise stress echocardiogram is performed. Summary 1. 1. Negative Kelvin exercise stress test for ischemic ST changes by ECG criteria. 2. 2. Reduced functional capacity, achieving 6.5 METs of workload. 3. 3. Hypertensive response to exercise. 4. 4. Appropriate HR response to exercise. 5. 5. Appropriate HR recovery at 1 minute post exercise. 6. 6. Negative stress echocardiogram for ischemia by wall motion analysis. 7. 7. Patient informed of the above results. Stress Echo Findings Left Ventricle Appropriate increase in LV endocardial thickening with systole. Appropriate augmentation of contractility with systole. No wall motion abnormality. Left Ventricle Normal LV systolic function, no wall motion abnormality. Protocol: Kelvin Stress ECG Details Stage: REST Duration (min): 1 min : 2 sec Speed (mph): 0.0 Grade (%): 0 HR (bpm): 67 SBP (mmHg): 121 DBP (mmHg): 79 METS: --- Stage: REST Duration (min): 10 min : 18 sec Speed (mph): 0.0 Grade (%): 0 HR (bpm): 72 SBP (mmHg): 121 DBP (mmHg): 79 METS: --- Stage: STAGE 1 Duration (min): 1 min : 0 sec Speed (mph): 1.7 Grade (%): 10 HR (bpm): 110 SBP (mmHg): 121 DBP (mmHg): 79 METS: --- Stage: STAGE 1 Duration (min): 2 min : 0 sec Speed (mph): 1.7 Grade (%): 10 HR (bpm): 121 SBP (mmHg): 121 DBP (mmHg): 79 METS: --- Stage: STAGE 1 Duration (min): 3 min : 0 sec Speed (mph): 1.7 Grade (%): 10 HR (bpm): 122 SBP (mmHg): 155 DBP (mmHg): 80 METS: --- Stage: STAGE 2 Duration (min): 1 min : 0 sec Speed (mph): 2.5 Grade (%): 12 HR (bpm): 127 SBP (mmHg): 155 DBP (mmHg): 80 METS: --- Stage: STAGE 2 Duration (min): 1 min : 3 sec Speed (mph): 0.0 Grade (%): 0 HR (bpm): 127 SBP (mmHg): 155 DBP (mmHg): 80 METS: --- Stage: RECOVERY Duration (min): 0 min : 56 sec Speed (mph): 0.0 Grade (%): 0 HR (bpm): 101 SBP (mmHg): 227 DBP (mmHg): 72 METS: --- Stage: RECOVERY Duration (min): 1 min : 56 sec Speed (mph): 0.0 Grade (%): 0 HR (bpm): 82 SBP (mmHg): 132 DBP (mmHg): 67 METS: --- Stage: RECOVERY Duration (min): 2 min : 56 sec Speed (mph): 0.0 Grade (%): 0 HR (bpm): 74 SBP (mmHg): 125 DBP (mmHg): 65 METS: --- Stage: RECOVERY Duration (min): 3 min : 5 sec Speed (mph): 0.0 Grade (%): 0 HR (bpm): 73 SBP (mmHg): 125 DBP (mmHg): 65 METS: --- Rest HR: 72 bpm Peak HR: 128 bpm Rest Sys BP: 121 mmHg Peak Sys BP: 227 mmHg Max Pred HR: 147 bpm % Max Pred HR: 87 % Target HR: 125 bpm Max RPP: 29,056 bpm*mmHg Nolasco Score: -1 BP Response: Patient exhibited a hypertensive response with stress Termination Reason: Reached target heart rate or workload Cardiac Symptoms: Shortness of breath Max ST Seg Deviation: -1.00 mm Total Time: 4 min : 3 sec Rest Ricketts BP: 79 mmHg Peak Ricketts BP: 72 mmHg Angina Score: None Total METS: 6.5 Resting ECG Sinus rhythm. Stress ECG No ST changes. Arrhythmias None. Report Signatures Stress ECG Echo
--- OUTSIDE RECORDS SUMMARY | 2024-11-06 10:23 | XMS_ITS | Clinical Summary ---
Author Organization [facility] Address [address] [place] [address] Care Team Providers Care Christian Science Nurse Name Role Phone Tyree Beasley MD Primary Care Provider [phone] Allergies No known active allergies Medications escitalopram 20 MG tablet 09/07/2018 Active omeprazole 20 MG capsule Take 20 mg by mouth daily. 12/15/2019 Active multi vitamin/minerals tablet Take 1 tablet by mouth daily. Active calcium carb-cholecalcif laurent 250-125 MG-UNIT tablet Take 1 tablet by mouth daily. Active Probiotic Product (ACIDOPHILUS/GOA T MILK) Cap 05/12/2016 Active Ibuprofen 200 MG capsule 05/12/2016 Active Cholecalciferol (VITAMIN D3) 25 MCG (1000 UT) Cap 05/12/2016 Active Active Problems Problem Noted Date Diagnosed Date Degenerative scoliosis 10/25/2018 Family History Medical History Relation Comments Cancer Mother Relation Status Comments Father Mother Social History Tobacco Use Types Packs/Day Years Used Date Smoking Tobacco: Never Smokeless Tobacco: Never Tobacco Cessation:Counseling Given: No Alcohol Use Standard Drinks/Week Comments Yes 23.3 (1 standard drink = 0.6 oz pure alcohol) 2 beers a night AUDIT-C Answer Date Recorded Frequency of Alcohol Consumption Monthly or less 02/27/2020 Average Number of Drinks 1 or 2 020 Frequency of Binge Drinking Never 11/2019 PHQ-2 Answer Date Recorded PHQ-2 Score - If the patient scores above 3, please move on to questions 3-9 0 05/12/2020 Comments No Sex and Gender Information Value Date Recorded Sex Assigned at Female 02/04/2020 11:46 AM CDT Legal Sex Female 10:45 AM CDT Gender Identity Female 02/04/2020 11:46 AM CDT Sexual Orientation Straight 02/04/2020 11 :46 AM CDT Last Filed Vital Signs Vital Sign Reading Time Taken Comments Blood Pressure 134/82 05/12/2020 8:49 AM CDT Pulse 65 05/12/2020 8:49 AM CDT Temperature 36.4 C (97.5 F) 03/18/2020 9:03 AM CDT Respiratory Rate 18 03/18/2020 11:0 0 AM CDT Oxygen Saturation 94% 05/12/2020 8:49 AM CDT Inhaled Oxygen Concentration - - Weight 68.8 kg (151 lb 11.2 oz) 05/12/2020 8:49 AM CDT Height 162.6 cm (5' 4 ) 05/12/2020 8:49 AM CDT Body Mass Index 26.04 05/12/2020 8:49 AM CDT Plan of Treatment Health Maintenance Due Date Last Done Comments Colorectal Cancer Screening Colonoscopy (10 Years) 1950 Hepatitis C 1969 DTaP, Tdap and Td Vaccines ( 1 - Tdap) 1970 Mammogram Screening 1991 Annual Medicare Wellness Visit 01/18/2016 Dexa Scan (General) 01/18/2016 Pneumococcal Vaccine: 65+ Years (2 of 2 - PPSV23 or PCV20) 08/03/2020 08/03/2019 COVID-19 Vaccine (2023-2 5 season) 2024 Influenza Adult (#1) 2024 08/03/2019, 06/29/2018 RSV Immunization or 60+ Years (1 - 1-dose 75+ series) 2026 Zoster Vaccines Completed 11/23/2019, 08/03/2019, 08/13/2015 Meningococcal B Vaccine Aged Out No l onger eligible based on patient's age to complete this topic Meningococcal Vaccine Aged Out No jairo clint eligible based on patient's age to complete this topic RSV Immunizations Under 20 Months Aged Out No longer eligible b ased on patient's age to complete this topic Medical Devices Implanted Type Area Core Winder Device Identifier Shelf Expiration Date Model / Serial / Lot Wire Fixation 9in .035in Tan Stainless Steel 2 End Nasrin Point - [id number] Implanted:Qty: 1 on 03/18/2020 by Param Son DPM at [facility] Wire Left: Toe [employer] [id number] / / Description:Implanted into l eft great toe. Insurance MEDICARE Advance Directives * Full Code (Latest Code Status on File) Date Activated Date Inactivated Comments 03/18/2020 9:05 AM 03/18/2020 1:51 PM Care Teams Christian Science Nurse Relationship Specialty Start Date End Date Tyree Beasley MD [address] [place] [address] PCP - General FAMILY PRACTICE 02/27/20
--- OUTSIDE RECORDS SUMMARY | 2024-11-06 10:23 | XMS_ITS | Encounter Summary ---
Author Organization [facility] Address [address] [place] [address] Care Team Providers Care Care Trainer Name Role Phone Tyree Beasley MD Primary Care Provider [phone] Reason for Referral * Surgical (Routine) - Closed Specialty Diagnoses / Procedures Referred By Inderjit t Referred To Contact Diagnoses Other deformities of toe(s) (acquired), left foot Cheilectomy left first metatarsal phalangeal joint Procedures Case request operating room: CHEILECTOMY([id number]) Param Son DPM Phone: tel: fax: Param Son DPM Phone: tel: fax: Referral ID Status Reason Start Date Expiration Date Visits Re quested Visits Authorized [id number] Closed 03/03/2020 04/02/2021 1 1 Encounter Details Date Type Department Care Team (Late st Contact Info) Description 03/03/2020 Prep for Procedure [facility] [address] [place] [address] Param Son DPM [address] [place] [address] Social History Tobacco Use Types Packs/Day Years Used Date Smoking Tobacco: Never Smokeless Tobacco: Never Alcohol Use Standard Drinks/Week Comments Yes 0 (1 standard drink = 0.6 oz pur e alcohol) AUDIT-C Answer Date Recorded Frequency of Alcohol Consumption Monthly or less 02/27/2020 Average Number of Drinks 1 or 2 020 Frequency of Binge Drinking Never 11/2019 Comments Unknown Sex and Gender Information Value Date Recorded Sex Assigned at Female 02/04/2020 11:46 AM CDT Legal Sex Female 10:45 AM CDT Gender Identity Female 02/04/2020 11:46 AM CDT Sexual Orientation Straight 02/04/2020 11 :46 AM CDT COVID-19 Exposure Response Date Recorded In the last month, have you been in contact with someone who was confirmed or suspected to have Coronavirus / COVID-19? No / Unsure 03/04/2020 10:36 AM CDT documented as of this encounter Plan of Treatment Scheduled Orders Name Type Priority Associated Diagnoses Orde r Schedule Case request operating room: CHEILECTOMY([id number]) Case Request Routine Once for 1 Oc currences starting 03/03/2020 until 03/03/2020 documented as of this encounter Visit Diagnoses Diagnosis Prophylactic antibiotic- Primary Encounter for long-term (current) use of antibiotics documented in this encounter Additional Health Concerns Infection Onset Date Last Indicated Resolved Time COVID-19 Rule Out 03/15/2020 03/15/2020 03/16/2020 11:24 AM CDT documented as of this encounter Care Teams Care Trainer Relationship Specialty Start Date End Date Tyree Beasley MD [address] [place] [id number] PCP - General FAMILY PRACTICE 02/27/20 documented as of this encounter
--- OUTSIDE RECORDS SUMMARY | 2024-11-06 10:23 | XMS_ITS | Encounter Summary ---
Author Organization [facility] Address [address] [place] [address] Care Team Providers Care Tennis Racket Repairer Name Role Phone Tyree Beasley MD Primary Care Provider Encounter Details Date Type Department Care Team (Late st Contact Info) Description 03/11/2020 Prep for Procedure [facility] [place] [facility] [address] [place] [address] Param Son, DPM [address] [place] [address] Social History Tobacco Use Types Packs/Day Years Used Date Smoking Tobacco: Never Smokeless Tobacco: Never Alcohol Use Standard Drinks/Week Comments Yes 23.3 (1 standard drink = 0.6 oz pure alcohol) 2 beers a night AUDIT-C Answer Date Recorded Frequency of Alcohol Consumption Monthly or less 02/27/2020 Average Number of Drinks 1 or 2 020 Frequency of Binge Drinking Never 11/2019 Comments No Sex and Gender Information Value [...] have Coronavirus / COVID-19? No / Unsure 03/11/2020 10:42 AM CDT documented as of this encounter Plan of Treatment Not on file documented as of this encounter Results * PRE-SURGICAL/PRE-PROCEDURE CORONAVIRUS (COVID 19) (03/15/2020 10:35 AM CDT) CORONAVIRUS SARS COV 2 PCR (RESP) NOT DETECTED NOT DETECTED 03/16/2020 11:24 AM CDT [facility] Comment: A Not Detected (negative) test result for this test means that SARS- CoV-2 RNA was not present in the specimen above the limit of detection. A negative result does not rule out the possibility of COVID-19 and should not be used as the sole basis for treatment or patient management decisions. If COVID-19 is still suspected, based on exposure history together with other clinical findings, re-testing should be considered in consultation with public health authorities. Laboratory test results should always be considered in the context of clinical observations and epidemiological data in making a final diagnosis and patient management decisions. Please review the Fact Sheets and FDA authorized labeling available for health care providers and patients using the following websites: https://www.Leap [employer] Entertainment.ChoreMonster/home/Covid-19/HCP/QuestIVD/fact- sheet.html https://www.[employer].ChoreMonster/home/Covid-19/Patients/ QuestIVD/fact-sheet.html This test has been authorized by the FDA under an Emergency Use Authorization (EUA) for use by authorized laboratories. Due to the current public health emergency, [facility] is receiving a high volume of samples from a wide variety of swabs and media for COVID-19 testing. In order to serve patients during this public health crisis, samples from appropriate clinical sources are being tested. Negative test results derived from specimens received in non-commercially manufactured viral collection and transport media, or in media and sample collection kits not yet authorized by FDA for COVID-19 testing should be cautiously evaluated and the patient potentially subjected to extra precautions such as additional clinical monitoring, including collection of an additional specimen. Methodology: Nucleic Acid Amplification Test (NAAT) includes PCR or TMA Additional information about COVID-19 can be found at the [facility] website: www.[employer].ChoreMonster/Covid19. Test performed at [facility] [address] [place] [address] Director: AROLDO BLACK DO,MPH NASOPHARYNGEAL SWAB / Unknown 03/15/2020 10:35 AM CDT us Param DOMINGUEZM MICROBIOLOGY - GENERAL ORDERABLE S Final Result [facility] [address] [place] [address], documented in this encounter Visit Diagnoses Diagnosis Pre-op testing- Primary Preoperative examination, unspecified documented in this encounter Additional Health Concerns Infection Onset Date Last Indicated Resolved Time COVID-19 Rule Out 03/15/2020 03/15/2020 03/16/2020 11:24 AM CDT documented as of this encounter Care Teams Tennis Racket Repairer Relationship Specialty Start Date End Date Tyree Beasley MD [address] [place] [phone] PCP - General FAMILY PRACTICE 02/27/20 documented as of this encounter
--- OUTSIDE RECORDS SUMMARY | 2024-11-06 10:23 | XMS_ITS | Clinical Summary ---
Author Organization [facility] al Address [address] [place] [address] Care Team Providers Care Stator Winder Name Role Phone Tyree Beasley MD Primary Care Provider Allergies No known active allergies Medications omeprazole (PriLOSEC) 20 mg capsule TK 1 C PO D 2 09/22/2018 Active escitalopram (LEXAPRO) 20 mg tablet 09/07/2018 Active Active Problems Problem Noted Date Diagnosed Date Degenerative scoliosis 10/25/2018 Family History Medical History Relation Name Comments Arthritis Father Family history of arthritis - (Added by TW Conv) Cancer Mother Family history of malignant neoplasm - (Added by TW Conv) Relation Name Status Comments Father Mother Social History Tobacco Use Types Packs/Day Years Used Date Smoking Tobacco: Never Smokeless Tobacco: Never Comments Unknown Sex and Gender Information Value Date Recorded Sex Assigned at Not on file Legal Sex Female 2:01 PM BUSINESS DEVELOPMENT SALES EXECUTIVE Gender Identity Not on file Sexual Orientation Not on file Obstetrics History Last Filed Vital Signs Vital Sign Reading Time Taken Comments Blood Pressure 125/77 12/16/2016 12:00 PM CDT Pulse 97 12/16/2016 12:00 PM CDT Temperature - - Respiratory Rate - - Oxygen Saturation 92% 12/16/2016 12:00 PM CDT Inhaled Oxygen Concentration - - Weight 68 kg (150 lb) 11/14/2019 9:12 AM BUSINESS DEVELOPMENT SALES EXECUTIVE Height 160.7 cm (5' 3.25 ) 11/14/2019 9:12 AM CS T Body Mass Index 26.36 11/14/2019 9:12 AM BUSINESS DEVELOPMENT SALES EXECUTIVE Plan of Treatment Not on file Insurance AETNA SENIOR SUPPLEMENT MEDICARE MEDICARE AETNA SENIOR SUPPLEMENT Care Teams Stator Winder Relationship Specialty Start Date End Date Tyree Beasley MD [address] [place], [place] [id number] PCP - General 12/05/17
--- OUTSIDE RECORDS SUMMARY | 2024-11-06 10:23 | XMS_ITS | Referral Summary ---
Author Organization [facility] al Address [address] [place] [address] Care Team Providers Care Rn Traveling Name Role Phone Tyree Beasley MD Primary Care Provider [phone] Allergies No known active allergies Medications omeprazole (PriLOSEC) 20 mg capsule TK 1 C PO D 2 09/22/2018 Active escitalopram (LEXAPRO) 20 mg tablet 09/07/2018 Active Active Problems Problem Noted Date Diagnosed Date Degenerative scoliosis 10/25/2018 Social History Tobacco Use Types Packs/Day Years Used Date Smoking Tobacco: Never Smokeless Tobacco: Never Comments Unknown Sex and Gender Information Value Date Recorded Sex Assigned at Not on file Legal Sex Female 2:01 PM HOME HEALTH CARE COORDINATOR Gender Identity Not on file Sexual Orientation Not on file Last Filed Vital Signs Vital Sign Reading Time Taken Comments Blood Pressure 125/77 12/16/2016 12:00 PM CDT Pulse 97 12/16/2016 12:00 PM CDT Temperature - - Respiratory Rate - - Oxygen Saturation 92% 12/16/2016 12:00 PM CDT Inhaled Oxygen Concentration - - Weight 68 kg (150 lb) 11/14/2019 9:12 AM HOME HEALTH CARE COORDINATOR Height 160.7 cm (5' 3.25 ) 11/14/2019 9:12 AM CS T Body Mass Index 26.36 11/14/2019 9:12 AM HOME HEALTH CARE COORDINATOR Plan of Treatment Not on file Insurance AETNA SENIOR SUPPLEMENT MEDICARE MEDICARE AETNA SENIOR SUPPLEMENT Care Teams Rn Traveling Relationship Specialty Start Date End Date Tyree Beasley MD [address] [place] [address] PCP - General 12/05/17
== END 2024-11-06 09:31 | disposition home or self-care (01) ==
PROVIDERS: PCP Family Medicine; Visit Provider Internal Medicine Cardiovascular Disease
DX: R07.9 Chest pain, unspecified (principal); R94.39 Abnormal result of other cardiovascular function study
CPT/HCPCS: 93351

== ENCOUNTER 2024-11-12 07:49 | Outpatient (CLI) | payer MEDICARE, OTHER, SELFPAY ==
--- OUTSIDE RECORDS SUMMARY | 2024-11-12 11:02 | XMS_ITS | Encounter Summary ---
Author Organization [facility] Address [address] [place] [address] Care Team Providers Care Radio News Writer Name Role Phone Tyree Beasley MD Primary Care Provider [phone] Reason for Referral * Surgical (Routine) - Closed Specialty Diagnoses / Procedures Referred By Inderjit t Referred To Contact Diagnoses Other deformities of toe(s) (acquired), left foot Cheilectomy left first metatarsal phalangeal joint Procedures Case request operating room: CHEILECTOMY([id number]) Param Son DPM Phone: tel: fax: Param Son DPM Phone: tel: fax: Referral ID Status Reason Start Date Expiration Date Visits Re quested Visits Authorized [id number] Closed 03/03/2020 04/02/2021 1 1 Encounter Details Date Type Department Care Team (Late st Contact Info) Description 03/03/2020 Prep for Procedure [facility] [place] [address] [place] [address] Param Son DPM [address] [place] [address] Social History Tobacco Use Types [...] Orde r Schedule Case request operating room: CHEILECTOMY([id number]) Case Request Routine Once for 1 Oc currences starting 03/03/2020 until 03/03/2020 documented as of this encounter Visit Diagnoses Diagnosis Prophylactic antibiotic- Primary Encounter for long-term (current) use of antibiotics documented in this encounter Additional Health Concerns Infection Onset Date Last Indicated Resolved Time COVID-19 Rule Out 03/15/2020 03/15/2020 03/16/2020 11:24 AM CDT documented as of this encounter Care Teams Radio News Writer Relationship Specialty Start Date End Date Tyree Beasley MD [address] [place] [phone] PCP - General FAMILY PRACTICE 02/27/20 documented as of this encounter
--- OUTSIDE RECORDS SUMMARY | 2024-11-12 11:02 | XMS_ITS | Encounter Summary ---
Author Organization [facility] Address [address] [place] [address] Care Team Providers Care Cardiothoracic Physiotherapist Name Role Phone Tyree Beasley MD Primary Care Provider [phone] Encounter Details Date Type Department Care Team (Late st Contact Info) Description 03/11/2020 Prep for Procedure [facility] [place] [facility] [address] [place] [address] Param Son, DPM [address] [place] [address] Social History Tobacco Use Types [...] DETECTED NOT DETECTED 03/16/2020 11:24 AM CDT [facility] Comment: A Not Detected (negative) test result [...] providers and patients using the following websites: https://www.BetaUsersNow.com.CreditCards.com/home/Covid-19/HCP/QuestIVD/fact- sheet.html https://www.BetaUsersNow.com.CreditCards.com/home/Covid-19/Patients/ QuestIVD/fact-sheet.html This test has been authorized by the FDA under an Emergency Use Authorization (EUA) for use by authorized laboratories. Due to the current public health emergency, [facility] is receiving a high volume of samples [...] about COVID-19 can be found at the [facility] website: www.[employer].CreditCards.com/Covid19. Test performed at [facility] [place] [address] [place] [address] Director: AROLDO BLACK DO,MPH NASOPHARYNGEAL SWAB / Unknown 03/15/2020 10:35 AM CDT us Param DOMINGUEZM MICROBIOLOGY - GENERAL ORDERABLE S Final Result [facility] [address] [place] [address], documented in this encounter Visit Diagnoses Diagnosis Pre-op testing- Primary Preoperative examination, unspecified documented in this encounter Additional Health Concerns Infection Onset Date Last Indicated Resolved Time COVID-19 Rule Out 03/15/2020 03/15/2020 03/16/2020 11:24 AM CDT documented as of this encounter Care Teams Cardiothoracic Physiotherapist Relationship Specialty Start Date End Date Tyree Beasley MD [address] [place] [phone] PCP - General FAMILY PRACTICE 02/27/20 documented as of this encounter
--- OUTSIDE RECORDS SUMMARY | 2024-11-12 11:02 | XMS_ITS | Clinical Summary ---
Author Organization [facility] al Address [address] [place] [address] Care Team Providers Care Mud Grinder Name Role Phone Tyree Beasley MD Primary [...] on file Legal Sex Female 2:01 PM MORTGAGE FIELD INSPECTOR Gender Identity Not on file Sexual Orientation Not on file Obstetrics History Last Filed Vital Signs Vital Sign Reading Time Taken Comments Blood Pressure 125/77 12/16/2016 12:00 PM CDT Pulse 97 12/16/2016 12:00 PM CDT Temperature - - Respiratory Rate - - Oxygen Saturation 92% 12/16/2016 12:00 PM CDT Inhaled Oxygen Concentration - - Weight 68 kg (150 lb) 11/14/2019 9:12 AM MORTGAGE FIELD INSPECTOR Height 160.7 cm (5' 3.25 ) 11/14/2019 9:12 AM CS T Body Mass Index 26.36 11/14/2019 9:12 AM MORTGAGE FIELD INSPECTOR Plan of Treatment Not on file Insurance AETNA SENIOR SUPPLEMENT MEDICARE MEDICARE AETNA SENIOR SUPPLEMENT Care Teams Mud Grinder Relationship Specialty Start Date End Date Tyree Beasley MD [address] [place], [place] [phone] PCP - General 12/05/17
--- OUTSIDE RECORDS SUMMARY | 2024-11-12 11:02 | XMS_ITS | Clinical Summary ---
Author Organization [facility] Address [address] [place] [address] Care Team Providers Care Dishcloth Folder Name Role Phone Tyree Beasley MD Primary Care Provider [phone] Allergies No known active allergies Medications escitalopram [...] this topic Medical Devices Implanted Type Area Swimming Pool Serviceperson Device Identifier Shelf Expiration Date Model / Serial / Lot Wire Fixation 9in .035in Tan Stainless Steel 2 End Nasrin Point - [id number] Implanted:Qty: 1 on 03/18/2020 by Param Son DPM at [facility] Wire Left: Toe [employer] [id number] / / Description:Implanted into l eft great toe. Insurance MEDICARE Advance Directives * Full Code (Latest Code Status on File) Date Activated Date Inactivated Comments 03/18/2020 9:05 AM 03/18/2020 1:51 PM Care Teams Dishcloth Folder Relationship Specialty Start Date End Date Tyree Beasley MD [address] [place] [address] PCP - General FAMILY PRACTICE 02/27/20
--- OUTSIDE RECORDS SUMMARY | 2024-11-12 11:02 | XMS_ITS | Referral Summary ---
Author Organization [facility] Address [address] [place] [address] Care Team Providers Care Job Foreman Name Role Phone Tyree Beasley MD Primary [...] on file Legal Sex Female 2:01 PM WAREHOUSE STOCKER Gender Identity Not on file Sexual Orientation Not on file Last Filed Vital Signs Vital Sign Reading Time Taken Comments Blood Pressure 125/77 12/16/2016 12:00 PM CDT Pulse 97 12/16/2016 12:00 PM CDT Temperature - - Respiratory Rate - - Oxygen Saturation 92% 12/16/2016 12:00 PM CDT Inhaled Oxygen Concentration - - Weight 68 kg (150 lb) 11/14/2019 9:12 AM WAREHOUSE STOCKER Height 160.7 cm (5' 3.25 ) 11/14/2019 9:12 AM CS T Body Mass Index 26.36 11/14/2019 9:12 AM WAREHOUSE STOCKER Plan of Treatment Not on file Insurance AETNA SENIOR SUPPLEMENT MEDICARE MEDICARE AETNA SENIOR SUPPLEMENT Care Teams Job Foreman Relationship Specialty Start Date End Date Tyree Beasley MD [address] [place] [address] PCP - General 12/05/17
--- NOTE | 2024-11-12 14:09 | WPDPFTINT ---
PFT Procedure Performed PFT Procedure Performed Spirometry with Pre/Post Bronchodilator Plethysmography (Lung Vol) Diffusing Cap (DLCO) Flow Vol Loop PFT Interpretation Lung volumes were assessed using body plethysmography. The results indicate a mildly reduced lung capacity, potentially suggesting a restrictive respiratory disease. Spirometry revealed a decreased FEV1, while the FEV1 to FVC ratio remained normal at 69%. After bronchodilator administration, there was a significant improvement in expiratory flow rates. The lung diffusion capacity is slightly reduced at 63% of the predicted value. This diminished diffusion capacity, alongside a normal alveolar volume, may suggest a pulmonary vascular abnormality, emphysema with preserved lung volume, early interstitial lung disease, or anemia. Clinical correlation is recommended. Compared to the previous study in 2021, the post-bronchodilator forced vital capacity has increased by approximately 0.4 L, while the total lung capacity has decreased by about 0.6 L. The lung diffusion capacity remains essentially unchanged. The notable response to bronchodilators may indicate the presence of underlying obstructive airway disease. Impression: Mild restrictive respiratory disease.
== END 2024-11-12 07:50 | disposition home or self-care (01) ==
LOC: ANHPFT 07:50
PROVIDERS: PCP Family Medicine; Visit Provider Internal Medicine Pulmonary Disease
DX: J44.9 Chronic obstructive pulmonary disease, unspecified (principal); J98.4 Other disorders of lung
CPT/HCPCS: 94060; 94726; 94729

== ENCOUNTER 2024-11-21 09:26 | Outpatient (CLI) | payer MEDICARE, OTHER, SELFPAY ==
--- NOTE | ~2024-11-21 | CT_ITS ---
Clinical indication:Disorder of lungs COMPARISON:Reference is made to a plain film evaluation of the chest dated 08/27/2024. TECHNIQUE: Multiple contiguous axial images of the chest were performed without the administration of intravenous contrast. FINDINGS: LUNG:Within the base of the left upper lobe is a irregularly shaped focus of soft tissue attenuation measuring 19 x 37 x 17 mm (axial series, image 63). Smaller nodules are identified within the left lo wer lobe, the largest measuring 9.2 x 6.2 mm (axial series, image 59). No additional abnormality is i dentified within the bilateral lung MEDIASTINUM:No pathologically enlarged or morphologically wishes lymph nodes within the mediastinum o r bilateral pulmonary jeanna. HEART:The heart is enlarged, without pericardial effusion. Calcification of the aortic valve is identified. SOFT TISSUES OF THE CHEST: Unremarkable BONES OF THE CHEST: Age appropriate degenerative disease. VISUALIZED PORTION OF THE UPPER ABDOMEN: Small hiatal hernia. The bilateral adrenal glands are unremarkable. IMPRESSION: Findings within the inferior segment of the left upper lobe (as detailed above) for which follow-up a s per Fleischner guidelines is recommended. Which includes PET/CT (preferably, to guide biopsy), tissue sampling or 3 month follow-up chest CT is recommended. Reviewed, dictated and finalized at location A. R CUTTING MACHINE OPERATOR IMPRESSION: Findings within the inferior segment of the left upper lobe (as detailed above) for which follow-up as per Fleischner guidelines is recommended. Which includes PET/CT (preferably, to guide biopsy), tissue sampling or 3 month follow-up chest CT is recommended.
--- OUTSIDE RECORDS SUMMARY | 2024-11-21 10:18 | XMS_ITS | Encounter Summary ---
Author Organization [facility] Address [address] [place] [address] Care Team Providers Care Assistant Housekeeping Manager Name Role Phone Tyree Beasley MD Primary Care Provider [phone] Reason for Referral * Surgical (Routine) - Closed Specialty Diagnoses / Procedures Referred By Inderjit t Referred To Contact Diagnoses Other deformities of toe(s) (acquired), left foot Cheilectomy left first metatarsal phalangeal joint Procedures Case request operating room: CHEILECTOMY([id number]) Param Son DPM Phone: tel: fax: Param Son DPM Phone: tel: fax: Referral ID Status Reason Start Date Expiration Date Visits Re quested Visits Authorized [id number] Closed 03/03/2020 04/02/2021 1 1 Encounter Details Date Type Department Care Team (Late st Contact Info) Description 03/03/2020 Prep for Procedure [facility] Medical [facility] [address] [place] [address] Param Son DPM [address] [place] [address] Social History Tobacco Use Types [...] Orde r Schedule Case request operating room: CHEILECTOMY([id number]) Case Request Routine Once for 1 Oc currences starting 03/03/2020 until 03/03/2020 documented as of this encounter Visit Diagnoses Diagnosis Prophylactic antibiotic- Primary Encounter for long-term (current) use of antibiotics documented in this encounter Additional Health Concerns Infection Onset Date Last Indicated Resolved Time COVID-19 Rule Out 03/15/2020 03/15/2020 03/16/2020 11:24 AM CDT documented as of this encounter Care Teams Assistant Housekeeping Manager Relationship Specialty Start Date End Date Tyree Beasley MD [address] [place] [phone] PCP - General FAMILY PRACTICE 02/27/20 documented as of this encounter
--- OUTSIDE RECORDS SUMMARY | 2024-11-21 10:18 | XMS_ITS | Clinical Summary ---
Author Organization [facility] Address [address] [place] [address] Care Team Providers Care Customer Supply Coordinator Name Role Phone Tyree Beasley MD Primary Care Provider [phone] Allergies No known active allergies Medications escitalopram [...] this topic Medical Devices Implanted Type Area Carpenter Mold Device Identifier Shelf Expiration Date Model / Serial / Lot Wire Fixation 9in .035in Tan Stainless Steel 2 End Nasrin Point - [id number] Implanted:Qty: 1 on 03/18/2020 by Param Son DPM at [facility] [employer] Wire Left: Toe [employer] [id number] / / Description:Implanted into l eft great toe. Insurance MEDICARE Advance Directives * Full Code (Latest Code Status on File) Date Activated Date Inactivated Comments 03/18/2020 9:05 AM 03/18/2020 1:51 PM Care Teams Customer Supply Coordinator Relationship Specialty Start Date End Date Tyree Beasley MD [address] [place] [address] PCP - General FAMILY PRACTICE 02/27/20
--- OUTSIDE RECORDS SUMMARY | 2024-11-21 10:18 | XMS_ITS | Encounter Summary ---
Author Organization [facility] Address [address] [place] [address] Care Team Providers Care Strap Cutter Name Role Phone Tyree Beasley MD Primary Care Provider [phone] Encounter Details Date Type Department Care Team (Late st Contact Info) Description 03/11/2020 Prep for Procedure [facility] [place] [facility] [address] [place] [address] Param Son, DPM [address] [place] [address] Social History Tobacco Use Types [...] DETECTED NOT DETECTED 03/16/2020 11:24 AM CDT [facility] Comment: A Not Detected (negative) test result [...] providers and patients using the following websites: https://www.[employer] CRM.YOLLEGE/home/Covid-19/HCP/QuestIVD/fact- sheet.html https://www.[employer].YOLLEGE/home/Covid-19/Patients/ QuestIVD/fact-sheet.html This test has been authorized by the FDA under an Emergency Use Authorization (EUA) for use by authorized laboratories. Due to the current public health emergency, [facility] is receiving a high volume of samples [...] about COVID-19 can be found at the [employer] website: www.[employer]io.YOLLEGE/Covid19. Test performed at [facility] [place] [address] [place] [address] Director: AROLDO BLACK DO,MPH NASOPHARYNGEAL SWAB / Unknown 03/15/2020 10:35 AM CDT us Param DOMINGUEZM MICROBIOLOGY - GENERAL ORDERABLE S Final Result [facility] [address] [place] [address], documented in this encounter Visit Diagnoses Diagnosis Pre-op testing- Primary Preoperative examination, unspecified documented in this encounter Additional Health Concerns Infection Onset Date Last Indicated Resolved Time COVID-19 Rule Out 03/15/2020 03/15/2020 03/16/2020 11:24 AM CDT documented as of this encounter Care Teams Strap Cutter Relationship Specialty Start Date End Date Tyree Beaslye MD [address] [place] [phone] PCP - General FAMILY PRACTICE 02/27/20 documented as of this encounter
--- OUTSIDE RECORDS SUMMARY | 2024-11-21 10:18 | XMS_ITS | Clinical Summary ---
Author Organization [facility] al Address [address] [place] [address] Care Team Providers Care Manager Commission Name Role Phone Tyree Beasley MD Primary [...] on file Legal Sex Female 2:01 PM HYDRAULIC PUNCH PRESS OPERATOR Gender Identity Not on file Sexual Orientation Not on file Obstetrics History Last Filed Vital Signs Vital Sign Reading Time Taken Comments Blood Pressure 125/77 12/16/2016 12:00 PM CDT Pulse 97 12/16/2016 12:00 PM CDT Temperature - - Respiratory Rate - - Oxygen Saturation 92% 12/16/2016 12:00 PM CDT Inhaled Oxygen Concentration - - Weight 68 kg (150 lb) 11/14/2019 9:12 AM HYDRAULIC PUNCH PRESS OPERATOR Height 160.7 cm (5' 3.25 ) 11/14/2019 9:12 AM CS T Body Mass Index 26.36 11/14/2019 9:12 AM HYDRAULIC PUNCH PRESS OPERATOR Plan of Treatment Not on file Insurance AETNA SENIOR SUPPLEMENT MEDICARE MEDICARE AETNA SENIOR SUPPLEMENT Care Teams Manager Commission Relationship Specialty Start Date End Date Tyree Beasley MD [address] [place], [place] [id number] PCP - General 12/05/17
--- OUTSIDE RECORDS SUMMARY | 2024-11-21 10:18 | XMS_ITS | Referral Summary ---
Author Organization [facility] al Address [address] [place] [address] Care Team Providers Care Framing Carpenter Name Role Phone Tyree Beasley MD Primary [...] on file Legal Sex Female 2:01 PM J2EE APPLICATION DEVELOPER Gender Identity Not on file Sexual Orientation Not on file Last Filed Vital Signs Vital Sign Reading Time Taken Comments Blood Pressure 125/77 12/16/2016 12:00 PM CDT Pulse 97 12/16/2016 12:00 PM CDT Temperature - - Respiratory Rate - - Oxygen Saturation 92% 12/16/2016 12:00 PM CDT Inhaled Oxygen Concentration - - Weight 68 kg (150 lb) 11/14/2019 9:12 AM J2EE APPLICATION DEVELOPER Height 160.7 cm (5' 3.25 ) 11/14/2019 9:12 AM CS T Body Mass Index 26.36 11/14/2019 9:12 AM J2EE APPLICATION DEVELOPER Plan of Treatment Not on file Insurance AETNA SENIOR SUPPLEMENT MEDICARE MEDICARE AETNA SENIOR SUPPLEMENT Care Teams Framing Carpenter Relationship Specialty Start Date End Date Tyree Beasley MD [address] [place] [address] PCP - General 12/05/17
== END 2024-11-21 09:27 | disposition home or self-care (01) ==
LOC: ANHIMG 09:26
PROVIDERS: PCP Family Medicine; Visit Provider Internal Medicine Pulmonary Disease
DX: R91.8 Other nonspecific abnormal finding of lung field (principal); J98.4 Other disorders of lung
CPT/HCPCS: 71250

== ENCOUNTER 2025-01-21 09:11 | Outpatient (CLI) | payer MEDICARE, OTHER, SELFPAY ==
--- NOTE | ~2025-01-21 | CT_ITS ---
CT Scan of the Chest without Contrast: Clinical Indication: Nonspecific abnormal finding of lung field Technique: Contiguous sections were acquired throughout the chest without intravenous contrast. Dose reduction technique was used on this scan by utilizing automated exposure control and iterative recon struction technique. The dose-length product (DLP) was 131.40 mGy-cm. COMPARISON: 11/21/2024 Findings: There is no evidence of any significant mediastinal, hilar or axillary lymphadenopathy. The mediastin al soft tissues appear normal. There is no evidence of pleural or pericardial effusion. There are somewhat nodular consolidation in the anteroinferior left lower lobe is mildly decreased in size/extent from prior exam. Stable scarring in the right middle lobe noted. Stable small peripheral nodule or scarring in the posterior left lower lobe (axial image 59). Images through the upper abdomen reveal no abnormalities. Impression: Somewhat nodular, masslike consolidation at the anteroinferior left lower lobe is mildly decreased in size, suggestive of slowly resolving infectious/inflammatory process. Additional follow-up CT scan i n 3 months recommended. Stable probable focal scarring or subcentimeter nodules in the posterior left lower lobe. Reviewed, dictated and finalized at location . Impression: Somewhat nodular, masslike consolidation at the anteroinferior left lower lobe is mildly decreased in size, suggestive of slowly resolving infectious/inflamma tory process. Additional follow-up CT scan in 3 months recommended. Stable probable focal scarring or subcentimeter nodules in the posterior left l ower lobe.
--- OUTSIDE RECORDS SUMMARY | 2025-01-21 09:46 | XMS_ITS | Referral Summary ---
Author Organization [facility] al Address [address] [place] [address] Care Team Providers Care Cabin Man Name Role Phone Tyree Beasley MD Primary Care Provider [phone] Allergies No known active allergies Medications omeprazole [...] on file Legal Sex Female 2:01 PM TRANSMITTER ENGINEER Gender Identity Not on file Sexual Orientation Not on file Last Filed Vital Signs Vital Sign Reading Time Taken Comments Blood Pressure 125/77 12/16/2016 12:00 PM CDT Pulse 97 12/16/2016 12:00 PM CDT Temperature - - Respiratory Rate - - Oxygen Saturation 92% 12/16/2016 12:00 PM CDT Inhaled Oxygen Concentration - - Weight 68 kg (150 lb) 11/14/2019 9:12 AM TRANSMITTER ENGINEER Height 160.7 cm (5' 3.25 ) 11/14/2019 9:12 AM CS T Body Mass Index 26.36 11/14/2019 9:12 AM TRANSMITTER ENGINEER Plan of Treatment Not on file Insurance [employer] SENIOR SUPPLEMENT MEDICARE MEDICARE AET[employer] SENIOR SUPPLEMENT Care Teams Cabin Man Relationship Specialty Start Date End Date Tyree Beasley MD [address] [place] [address] PCP - General 12/05/17
--- OUTSIDE RECORDS SUMMARY | 2025-01-21 09:46 | XMS_ITS | Clinical Summary ---
Author Organization [facility] al Address [address] [place] [address] Care Team Providers Care Lead Housekeeper Name Role Phone Tyree Beasley MD Primary Care Provider [phone] Allergies No known active allergies Medications omeprazole [...] on file Legal Sex Female 2:01 PM TELEPHONE OPERATORS SUPERVISOR Gender Identity Not on file Sexual Orientation Not on file Obstetrics History Last Filed Vital Signs Vital Sign Reading Time Taken Comments Blood Pressure 125/77 12/16/2016 12:00 PM CDT Pulse 97 12/16/2016 12:00 PM CDT Temperature - - Respiratory Rate - - Oxygen Saturation 92% 12/16/2016 12:00 PM CDT Inhaled Oxygen Concentration - - Weight 68 kg (150 lb) 11/14/2019 9:12 AM TELEPHONE OPERATORS SUPERVISOR Height 160.7 cm (5' 3.25 ) 11/14/2019 9:12 AM CS T Body Mass Index 26.36 11/14/2019 9:12 AM TELEPHONE OPERATORS SUPERVISOR Plan of Treatment Not on file Insurance [employer] SENIOR SUPPLEMENT MEDICARE MEDICARE AET[employer] SENIOR SUPPLEMENT Care Teams Lead Housekeeper Relationship Specialty Start Date End Date Tyree Beasley MD [address] [place], [place] [id number] PCP - General 12/05/17
--- OUTSIDE RECORDS SUMMARY | 2025-01-21 09:46 | XMS_ITS | Clinical Summary ---
Author Organization [facility] Address [address] [place] [address] Care Team Providers Care Recreational Facilities Motel Manager Name Role Phone Tyree Beasley MD Primary Care Provider [phone] Allergies No known active allergies Medications escitalopram [...] 01/18/2016 Dexa Scan (General) 01/18/2016 Pneumococcal Vaccine: 50+ Years (2 of 2 - PPSV23) 08/03/2020 08/03/2019 COVID-19 Vaccine (1 - 2023-2 5 season) 2024 RSV Immunization or 60+ Years (1 - [...] this topic Medical Devices Implanted Type Area Cycle Director Device Identifier Shelf Expiration Date Model / Serial / Lot Wire Fixation 9in .035in Tan Stainless Steel 2 End [place] - [id number] Implanted:Qty: 1 on 03/18/2020 by Param Son DPM at [facility] Wire Left: Toe [employer] [id number] / / Description:Implanted into l eft great toe. Insurance MEDICARE Advance Directives * Full Code (Latest Code Status on File) Date Activated Date Inactivated Comments 03/18/2020 9:05 AM 03/18/2020 1:51 PM Care Teams Recreational Facilities Motel Manager Relationship Specialty Start Date End Date yTree Beasley MD [address] [place] [address] PCP - General FAMILY PRACTICE 02/27/20
--- OUTSIDE RECORDS SUMMARY | 2025-01-21 09:46 | XMS_ITS | Encounter Summary ---
Author Organization [facility] Address [address] [place] [address] Care Team Providers Care Campus Aide Name Role Phone Tyree Beasley MD Primary Care Provider [phone] Reason for Referral * Surgical (Routine) - Closed Specialty Diagnoses / Procedures Referred By Inderjit t Referred To Contact Diagnoses Other deformities of toe(s) (acquired), left foot Cheilectomy left first metatarsal phalangeal joint Procedures Case request operating room: CHEILECTOMY([id number]) Param Son DPM Phone: tel: fax: Param Son DPM Phone: tel: fax: Referral ID Status Reason Start Date Expiration Date Visits Re quested Visits Authorized [id number] Closed 03/03/2020 04/02/2021 1 1 Encounter Details Date Type Department Care Team (Late st Contact Info) Description 03/03/2020 Prep for Procedure [facility] [address] [place] [address] Param Son DPM [address] [place] [address] Social History Tobacco Use Types [...] Orde r Schedule Case request operating room: CHEILECTOMY([id number]) Case Request Routine Once for 1 Oc currences starting 03/03/2020 until 03/03/2020 documented as of this encounter Visit Diagnoses Diagnosis Prophylactic antibiotic- Primary Encounter for long-term (current) use of antibiotics documented in this encounter Additional Health Concerns Infection Onset Date Last Indicated Resolved Time COVID-19 Rule Out 03/15/2020 03/15/2020 03/16/2020 11:24 AM CDT documented as of this encounter Care Teams Campus Aide Relationship Specialty Start Date End Date Tyree Beasley MD [address] [place] [phone] PCP - General FAMILY PRACTICE 02/27/20 documented as of this encounter
--- OUTSIDE RECORDS SUMMARY | 2025-01-21 09:46 | XMS_ITS | Encounter Summary ---
Author Organization [facility] Address [address] [place] [address] Care Team Providers Care Art Consultant Name Role Phone Tyree Beasley MD Primary Care Provider [phone] Encounter Details Date Type Department Care Team (Late st Contact Info) Description 03/11/2020 Prep for Procedure [facility] [address] [place] [address] Param Son, DPM [address] [place] [address] Social History Tobacco Use Types [...] DETECTED NOT DETECTED 03/16/2020 11:24 AM CDT [facility] Comment: A Not Detected (negative) test result [...] providers and patients using the following websites: https://www.Bridgestream.GetYourGuide/home/Covid-19/HCP/QuestIVD/fact- sheet.html https://www.Bridgestream.GetYourGuide/home/Covid-19/Patients/ QuestIVD/fact-sheet.html This test has been authorized by the FDA under an Emergency Use Authorization (EUA) for use by authorized laboratories. Due to the current public health emergency, [facility] is receiving a high volume of samples [...] about COVID-19 can be found at the [employer] [employer] website: www.[employer].GetYourGuide/Covid19. Test performed at [facility] [address] [place] [address] Director: AROLDO BLACK DO,MPH NASOPHARYNGEAL SWAB / Unknown 03/15/2020 10:35 AM CDT us Param DOMINGUEZM MICROBIOLOGY - GENERAL ORDERABLE S Final Result [facility] [address] [place] [address], documented in this encounter Visit Diagnoses Diagnosis Pre-op testing- Primary Preoperative examination, unspecified documented in this encounter Additional Health Concerns Infection Onset Date Last Indicated Resolved Time COVID-19 Rule Out 03/15/2020 03/15/2020 03/16/2020 11:24 AM CDT documented as of this encounter Care Teams Art Consultant Relationship Specialty Start Date End Date Tyree Beasley MD [address] [place] [phone] PCP - General FAMILY PRACTICE 02/27/20 documented as of this encounter
== END 2025-01-21 09:12 | disposition home or self-care (01) ==
LOC: ANHIMG 09:12
PROVIDERS: PCP Family Medicine; Visit Provider Internal Medicine Pulmonary Disease
DX: R91.8 Other nonspecific abnormal finding of lung field (principal)
CPT/HCPCS: 71250

== ENCOUNTER 2025-04-15 09:19 | Outpatient (CLI) | payer MEDICARE, OTHER, SELFPAY ==
--- NOTE | ~2025-04-15 | CT_ITS ---
EXAMINATION: CT diagnostic chest wo con DATE: 04/15/2025 09:50 INDICATION: R91.8 - Other nonspecific abnormal finding of lung field TECHNIQUE: Computed tomography (CT) of the chest was performed without intravenous contrast. Addition al 3D reconstructions utilizing coronal maximum intensity projection (MIP) were performed. Automated exposure control and iterative reconstruction technique were employed. The dose-length product was 11 5.74 mGy-cm. COMPARISON: 01/21/2025 FINDINGS: Interval resolution of the previously seen nodular region of consolidation at the anterobasilar segme nt of the left lower lobe which was likely infectious/inflammatory in etiology. There has also been i nterval improvement in the small region of tree-in-bud opacity in the posterior basilar segment of th e left lower lobe. Second small region of tree-in-bud opacity in the superior segment left upper lobe with increase in size of a previously 4 x 3 mm, currently 9 x 4 mm dominant nodule which given the r apid growth is also most likely infectious in etiology. Small calcified nodules in the bilateral uppe r lobes consistent with old granulomatous disease. Mild discoid atelectasis at the bilateral lung bas es. No pulmonary edema, pleural effusion or pneumothorax. Heart size is normal. Small amount of ather osclerotic coronary artery calcific location. No pericardial effusion. Thoracic aorta is normal in ca liber. No pathologically enlarged thoracic lymphadenopathy. Visualized upper abdomen is unremarkable. Mild thoracolumbar levocurvature with severe spondylosis. IMPRESSION: 1. Interval resolution of the prior nodular region of consolidation in the anterobasilar segment of t he left lower lobe which is most likely related to pneumonia. 2. Significant increase in size of a bracelet 4 x 3, currently 9 x 4 mm nodule within the region of p ersistent tree-in-bud opacity in the superior segment of the left upper lobe which given the rapid in terval growth is also most likely infectious/inflammatory in etiology. Consider additional 3 month lo w-dose noncontrast chest CT follow-up. Reviewed, dictated and finalized at location A. IMPRESSION: 1. Interval resolution of the prior nodular region of consolidation in the ante robasilar segment of the left lower lobe which is most likely related to pneumo brenda. 2. Significant increase in size of a bracelet 4 x 3, currently 9 x 4 mm nodule within the region of persistent tree-in-bud opacity in the superior segment of the left upper lobe which given the rapid interval growth is also most likely i nfectious/inflammatory in etiology. Consider additional 3 month low-dose noncon trast chest CT follow-up.
--- OUTSIDE RECORDS SUMMARY | 2025-04-15 09:27 | XMS_ITS | Clinical Summary ---
Author Organization [facility] al Address [address] [place] [address] Care Team Providers Care Wood Tile Installation Helper Name Role Phone Tyree Beasley MD Primary [...] on file Legal Sex Female 2:01 PM IT PROJECT COORDINATOR Gender Identity Not on file Sexual Orientation Not on file Obstetrics History Last Filed Vital Signs Vital Sign Reading Time Taken Comments Blood Pressure 125/77 12/16/2016 12:00 PM CDT Pulse 97 12/16/2016 12:00 PM CDT Temperature - - Respiratory Rate - - Oxygen Saturation 92% 12/16/2016 12:00 PM CDT Inhaled Oxygen Concentration - - Weight 68 kg (150 lb) 11/14/2019 9:12 AM IT PROJECT COORDINATOR Height 160.7 cm (5' 3.25) 11/14/2019 9:12 AM CS T Body Mass Index 26.36 11/14/2019 9:12 AM IT PROJECT COORDINATOR Plan of Treatment Not on file Insurance AETNA SENIOR SUPPLEMENT MEDICARE MEDICARE AETNA SENIOR SUPPLEMENT Care Teams Wood Tile Installation Helper Relationship Specialty Start Date End Date Tyree Beasley MD [address] [place], [place] [phone] PCP - General 12/05/17
--- OUTSIDE RECORDS SUMMARY | 2025-04-15 09:27 | XMS_ITS | Referral Summary ---
Author Organization [facility] al Address [address] [place] [address] Care Team Providers Care Director Of Catering Name Role Phone Tyree Beasley MD Primary [...] on file Legal Sex Female 2:01 PM PATTERN CHANGER AND REPAIRER Gender Identity Not on file Sexual Orientation Not on file Last Filed Vital Signs Vital Sign Reading Time Taken Comments Blood Pressure 125/77 12/16/2016 12:00 PM CDT Pulse 97 12/16/2016 12:00 PM CDT Temperature - - Respiratory Rate - - Oxygen Saturation 92% 12/16/2016 12:00 PM CDT Inhaled Oxygen Concentration - - Weight 68 kg (150 lb) 11/14/2019 9:12 AM PATTERN CHANGER AND REPAIRER Height 160.7 cm (5' 3.25) 11/14/2019 9:12 AM CS T Body Mass Index 26.36 11/14/2019 9:12 AM PATTERN CHANGER AND REPAIRER Plan of Treatment Not on file Insurance AETNA SENIOR SUPPLEMENT MEDICARE MEDICARE AETNA SENIOR SUPPLEMENT Care Teams Director Of Catering Relationship Specialty Start Date End Date Tyree Beasley MD [address] [place] [address] PCP - General 12/05/17
--- OUTSIDE RECORDS SUMMARY | 2025-04-15 09:27 | XMS_ITS | Clinical Summary ---
Author Organization [facility] Address [address] [place] [address] Care Team Providers Care Contact Person Name Role Phone Tyree Beasley MD Primary Care Provider Source Comments [facility],non-owned Affiliates and Associated Physician Practices is amultiple site organization consisting of ambulatory clinics and hospital sitesin [place], [place], [place] and [place]. This disclosure is being madepursuant to the Care Everywhere program and may not contain all information available regarding this patient. Last updated 18.[facility] Medications * Be aware that medications may not be up to date on this document. Alwaysverify current medications with the patient. omeprazole (PRILOSEC) 10 MG capsule Take by mouth DAILY. 05/12/2016 Active Probiotic Product (ACIDOPHILUS/GOA T MILK) CAPS Take by mouth DAILY. 05/12/2016 Active ibuprofen (ADVIL) 200 MG capsule Take by mouth DAILY. 05/12/2016 Active Cholecalciferol (VITAMIN D3) 1000 UNITS Take by mouth DAILY. 05/12/2016 Active aspirin (ASPIRIN) 81 MG tablet Take 81 mg by mouth DAILY. 05/12/2016 Active escitalopram (LEXAPRO) 20 MG tablet Take 20 mg by mouth DAILY. 05/12/2016 Active Encounters Date Type Department Care Team Description 03/25/2025 Lab Requisition [facility] - DermPath Lab [address] [place] [address] Sarah Ramires DO from Last 3 Months Family History Medical History Relation Name Comments Aneurysm Father CAD (Coronary Artery Disease) Mother Cancer - Breast Mother Relation Name Status Comments Father Mother Social History Tobacco Use Types Packs/Day Years Used Date Smoking Tobacco: Never Smokeless Tobacco: Never Alcohol Use Standard Drinks/Week Comments Yes 0 (1 standard drink = 0.6 oz pur e alcohol) Comments Unknown Sex and Gender Information Value Date Recorded Sex Assigned at Not on file Legal Sex Female 5:51 PM [employer] Gender Identity Not on file Sexual Orientation Not on file Last Filed Vital Signs Vital Sign Reading Time Taken Comments Blood Pressure 134/83 06/30/2016 1:11 PM CDT Pulse 65 06/30/2016 1:11 PM CDT Temperature - - Respiratory Rate - - Oxygen Saturation 96% 06/30/2016 1:11 PM CDT Inhaled Oxygen Concentration - - Weight 64.4 kg (142 lb) 06/30/2016 9:09 AM CDT Height 160 cm (5' 3) 06/30/2016 9:09 AM CDT Body Mass Index 25.15 06/30/2016 9:09 AM CDT Plan of Treatment Health Maintenance Due Date Last Done Comments BONE DENSITY TESTING 1950 COLOGUARD (AGES 45-75) - COL ON CA SCREENING 1950 COLON MONITORING 1950 COLONOSCOPY - COLON CA SCREENING 1950 CT COLONOGRAPHY - COLON CA SCREENING 1950 Colorectal Cancer Screening 1950 FIT - COLON CA SCREENING 1950 FLEX SIG - COLON CA SCREENING 1950 LIPID TESTING 1950 MAMMOGRAM 1950 MEDICARE AWV 12 MONTHS 1950 HEPATITIS C SCREENING 01/12/1969 DTAP/TDAP/TD VACCINES (1 - Tdap) 1970 PNEUMOCOCCAL VACCINE 50+ (1 of 1 - PCV) 2001 ZOSTER VACCINE (1 of 2) 2001 COVID-19 VACCINE ( - 2023-2 5 season) 2024 DEPRESSION SCREENING 09/26/2024 INFLUENZA VACCINE (#1) 2025 Respiratory Syncytial Virus (RSV) Vaccine Pt: or over 60 yrs (1 - 1-dose 75+ series) 2026 HEPATITIS B VACCINE Aged Out No longe r eligible based on patient's age to complete this topic HIB VACCINE Aged Out No longer eligi ble based on patient's age to complete this topic HPV VACCINE Aged Out No longer eligi ble based on patient's age to complete this topic MENINGOCOCCAL (Group B) VACC INE SHARED DECISION-MAKING Aged Out No longer eligibl e based on patient's age to complete this topic MENINGOCOCCAL GROUPS A/C/Y/W VACCINE Aged Out No longer eligible b ased on patient's age to complete this topic Procedures Procedure Name Priority Date/Time Associated Diagnosis Comments DERMATOPATHOLOGY Routine 03/25/2025 11:1 4 AM CDT from Last 3 Months Results * DERMATOPATHOLOGY (03/25/2025 11:14 AM CDT) Case Report Dermatopathology Report Case: [id number] Authorizing Provider: Sarah Ramires DO Collected: 03/25/2025 11:14 AM Ordering Location: [facility] - Received: 03/26/2025 09:35 AM DermPath Lab Pathologist: Felicita Mcgovern MD Specimen: Skin, right nasal ala 5 6:17 PM CDT DERMATOPATHOLOGY LABORATORY Final Diagnosis Specimen A. SKIN, right nasal ala: ACTINIC KERATOSIS (L57.0) 6:17 PM CDT DERMATOPATHOLOGY LABORATORY at 1817 CDT Clinical History R/O BCC 6:17 PM CDT DERMATOPATHOLOGY LABORATORY Gross Description Specimen A: Received is one formalin filled container labeled with the patient's name and designated right nasal ala. The specimen consists of a shave biopsy measuring 4x3x1 mm. Jar 0. 6:17 PM CDT DERMATOPATHOLOGY LABORATORY Microscopic Description Specimen A. SKIN, right nasal ala: There is focal parakeratosis. The lower half of the epidermis shows disorderly maturation of keratinocytes with nuclear pleomorphism. 5 6:17 PM CDT DERMATOPATHOLOGY LABORATORY Disclaimer An external and internal positive and negative controls are appropriate for the histochemical, immunohistochemical and immunofluorescence stain(s) in this case (if any), except where stated explicitly. The performance characteristics of the stain(s) cited in this report were developed and its performance characteristic determined by the Dermatopathology Laboratory at [facility], directed by Dr. Razia Patterson. These tests need not be, and therefore are not, approved by the [place] Food and Drug Administration. The tests are used for clinical purposes. Billing Codes Specimen Charges Stain Charges 00794 1 5 6:17 PM CDT DERMATOPATHOLOGY LABORATORY Embedded Images 5 6:17 PM CDT DERMATOPATHOLOGY LABORATORY Pathology/Cytolo gy TISSUE SPECIMEN FROM SKIN / Unknown 03/25/2025 11:14 AM CDT 03/26/2025 9:35 AM CDT Sarah Ramires DO LAB - PATHOLOGY/CYTOLOGY ORDERABLES Final Result DERMATOPATHOLOGY LABORATORY [facility] - Department of Dermatology [address] [phone] from Last 3 Months Insurance MEDICARE [facility] MEDICARE [facility] Care Teams Contact Person Relationship Specialty Start Date End Date Tyree Beasley MD [address] [place] [phone] PCP - General 05/15/13
--- OUTSIDE RECORDS SUMMARY | 2025-04-15 09:27 | XMS_ITS | Encounter Summary ---
Author Organization [facility] Address [address] [place] [address] Care Team Providers Care Filing And Polishing Supervisor Name Role Phone Tyree Beasley MD Primary Care Provider [phone] Encounter Details Date Type Department Care Team (Late st Contact Info) Description 03/11/2020 Prep for Procedure [facility] [place] [facility] [address] [place] [address] Param Son, DPM [address] [place] [address] Social History Tobacco Use Types [...] DETECTED NOT DETECTED 03/16/2020 11:24 AM CDT [facility] Comment: A Not Detected (negative) test [...] providers and patients using the following websites: https://www.Lokalite.Ufree/home/Covid-19/HCP/QuestIVD/fact- sheet.html https://www.Lokalite.Ufree/home/Covid-19/Patients/ QuestIVD/fact-sheet.html This test has been authorized by the FDA under an Emergency Use Authorization (EUA) for use by authorized laboratories. Due to the current public health emergency, [facility] is receiving a high volume of samples [...] about COVID-19 can be found at the [facility] website: www.[facility].Ufree/Covid19. Test performed at [facility] [place] [address] [place] [address] Director: AROLDO BLACK DO,MPH NASOPHARYNGEAL SWAB / Unknown 03/15/2020 10:35 AM CDT us Param DOMINGUEZM MICROBIOLOGY - GENERAL ORDERABLE S Final Result [facility] [address] [place] [address], documented in this encounter Visit Diagnoses Diagnosis Pre-op testing- Primary Preoperative examination, unspecified documented in this encounter Additional Health Concerns Infection Onset Date Last Indicated Resolved Time COVID-19 Rule Out 03/15/2020 03/15/2020 03/16/2020 11:24 AM CDT documented as of this encounter Care Teams Filing And Polishing Supervisor Relationship Specialty Start Date End Date Tyree Beasley MD [address] [place] [phone] PCP - General FAMILY PRACTICE 02/27/20 documented as of this encounter
--- OUTSIDE RECORDS SUMMARY | 2025-04-15 09:27 | XMS_ITS | Encounter Summary ---
Author Organization [facility] Address [address] [facility] [place] [address] Care Team Providers Care Drawer Liner Name Role Phone Tyree Beasley MD Primary Care Provider [phone] Encounter Details Date Type Department Care Team (Late st Contact Info) Description 03/25/2025 Lab Requisition [facility] - DermPath Lab [address] [facility], [place] [address] Sarah Ramires DO [address] [facility] 3 [place] [address] Social History Tobacco Use Types Packs/Day Years Used Date Smoking Tobacco: Never Smokeless Tobacco: Never Alcohol Use Standard Drinks/Week Comments Yes 0 (1 standard drink = 0.6 oz pur e alcohol) Comments Unknown Sex and Gender Information Value Date Recorded Sex Assigned at Not on file Legal Sex Female 5:51 PM FABRIC WORKER FITTER Gender Identity Not on file Sexual Orientation Not on file documented as of this encounter Plan of Treatment Not on file documented as of this encounter Procedures Procedure Name Priority Date/Time Associated Diagnosis Comments DERMATOPATHOLOGY Routine 03/25/2025 11:1 4 AM CDT documented in this encounter Results * DERMATOPATHOLOGY (03/25/2025 11:14 AM CDT) Case Report Dermatopathology Report Case: [id number] Authorizing Provider: Sarah Ramires DO Collected: 03/25/2025 11:14 AM Ordering Location: [facility] - Received: 03/26/2025 09:35 AM DermPath Lab Pathologist: Felicita Mcgovern MD Specimen: Skin, right nasal ala 6:17 PM CDT DERMATOPATHOLOGY LABORATORY Final Diagnosis [...] disorderly maturation of keratinocytes with nuclear pleomorphism. 6:17 PM CDT DERMATOPATHOLOGY LABORATORY Disclaimer An external and internal positive and negative controls are appropriate for the histochemical, immunohistochemical and immunofluorescence stain(s) in this case (if any), except where stated explicitly. The performance characteristics of the stain(s) cited in this report were developed and its performance characteristic determined by the Dermatopathology Laboratory at [facility], directed by Dr. Razia Patterson. These tests need not be, and therefore are not, approved by the [place] Food and Drug Administration. The tests are used for clinical purposes. Billing Codes Specimen Charges Stain Charges [id number] 1 6:17 PM CDT DERMATOPATHOLOGY LABORATORY Embedded Images 6:17 PM CDT DERMATOPATHOLOGY LABORATORY Pathology/Cytolo gy TISSUE SPECIMEN FROM SKIN / Unknown 03/25/2025 11:14 AM CDT 03/26/2025 9:35 AM CDT us Sarah Ramires DO LAB - PATHOLOGY/CYTOLOGY ORDERABLES Final Result DERMATOPATHOLOGY LABORATORY [facility] - Department of Dermatology [address] [phone] documented in this encounter Visit Diagnoses Not on filedocumented in this encounter Care Teams Drawer Liner Relationship Specialty Start Date End Date Tyree Beasley MD [address] [place] [address] PCP - General 05/15/13 documented as of this encounter
--- OUTSIDE RECORDS SUMMARY | 2025-04-15 09:27 | XMS_ITS | Clinical Summary ---
Author Organization [facility] Address [address] [place] [address] Care Team Providers Care Commercial Sewing Instructor Name Role Phone Tyree Beasley MD Primary Care Provider [phone] Allergies No known active allergies Medications escitalopram 20 MG tablet 09/07/2018 Active omeprazole 20 MG capsule Take 20 mg by mouth daily. 12/15/2019 Active multi vitamin/minerals tablet Take 1 tablet by mouth daily. Active calcium carb-cholecalcif alurent 250-125 MG-UNIT tablet Take 1 tablet by [...] 8:49 AM CDT Height 162.6 cm (5' 4) 05/12/2020 8:49 AM CDT Body Mass Index [...] this topic Medical Devices Implanted Type Area Fermentation Operator Device Identifier Shelf Expiration Date Model / Serial / Lot Wire Fixation 9in .035in Tan Stainless Steel 2 End Nasrin Point - [id number] Implanted:Qty: 1 on 03/18/2020 by Param Son DPM at [facility] [employer] Wire Left: Toe [employer] [id number] / / Description:Implanted into l eft great toe. Insurance MEDICARE Advance Directives * Full Code (Latest Code Status on File) Date Activated Date Inactivated Comments 03/18/2020 9:05 AM 03/18/2020 1:51 PM Care Teams Commercial Sewing Instructor Relationship Specialty Start Date End Date Tyree Beasley MD [address] [place] [address] PCP - General FAMILY PRACTICE 02/27/20
--- OUTSIDE RECORDS SUMMARY | 2025-04-15 09:27 | XMS_ITS | Encounter Summary ---
Author Organization [facility] Address [address] [place] [address] Care Team Providers Care Hospice Volunteer Coordinator Name Role Phone Tyree Beasley MD Primary Care Provider [phone] Reason for Referral * Surgical (Routine) - Closed Specialty Diagnoses / Procedures Referred By Inderjit t Referred To Contact Diagnoses Other deformities of toe(s) (acquired), left foot Cheilectomy left first metatarsal phalangeal joint Procedures Case request operating room: CHEILECTOMY([id number]) Param Son DPM Phone: tel: fax: Paarm Son DPM Phone: tel: fax: Referral ID Status Reason Start Date Expiration Date Visits Re quested Visits Authorized [id number] Closed 03/03/2020 04/02/2021 1 1 Encounter Details Date Type Department Care Team (Late st Contact Info) Description 03/03/2020 Prep for Procedure [facility] [address] [place] [address] Param Son DPM [address] [place] [address] Social History Tobacco Use Types [...] Orde r Schedule Case request operating room: CHEILECTOMY([id number]) Case Request Routine Once for 1 Oc currences starting 03/03/2020 until 03/03/2020 documented as of this encounter Visit Diagnoses Diagnosis Prophylactic antibiotic- Primary Encounter for long-term (current) use of antibiotics documented in this encounter Additional Health Concerns Infection Onset Date Last Indicated Resolved Time COVID-19 Rule Out 03/15/2020 03/15/2020 03/16/2020 11:24 AM CDT documented as of this encounter Care Teams Hospice Volunteer Coordinator Relationship Specialty Start Date End Date Tyree Beasley MD [address] [place] [phone] PCP - General FAMILY PRACTICE 02/27/20 documented as of this encounter
== END 2025-04-15 09:20 | disposition home or self-care (01) ==
LOC: ANHIMG 09:22
PROVIDERS: PCP Family Medicine; Visit Provider Internal Medicine Pulmonary Disease
DX: R91.8 Other nonspecific abnormal finding of lung field (principal)
CPT/HCPCS: 71250

== ENCOUNTER 2025-04-27 09:42 | Emergency (ER) | payer MEDICARE, OTHER, SELFPAY ==
--- OUTSIDE RECORDS SUMMARY | 2025-04-27 09:43 | XMS_ITS | Referral Summary ---
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
--- OUTSIDE RECORDS SUMMARY | 2025-04-27 09:43 | XMS_ITS | Clinical Summary ---
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 Gender Identity Not on file Sexual Orientation Not on file Obstetrics History Last Filed Vital Signs Vital Sign Reading Time Taken Comments Blood Pressure 125/77 12/16/2016 12:00 PM CDT Pulse 97 12/16/2016 12:00 PM CDT Temperature - - Respiratory Rate - - Oxygen Saturation 92% 12/16/2016 12:00 PM CDT Inhaled Oxygen Concentration - - Weight 68 kg (150 lb) 11/14/2019 9:12 AM COLD STORAGE WORKER Height 160.7 cm (5' 3.25) 11/14/2019 9:12 AM CS T Body Mass Index 26.36 11/14/2019 9:12 AM COLD STORAGE WORKER Plan of Treatment Not on file Insurance [employer] SENIOR SUPPLEMENT MEDICARE MEDICARE [place] [address] Care Teams Flex O Writer Operator Relationship Specialty Start Date End Date Tyree Beasley MD [address] [place], [place] [phone] PCP - General 12/05/17
--- OUTSIDE RECORDS SUMMARY | 2025-04-27 09:43 | XMS_ITS | Encounter Summary ---
Author Organization [facility] Address [address] [place] [address] Care Team Providers Care Chief Sales Officer Name Role Phone Tyree Beasley MD Primary Care Provider [phone] Reason for Referral * Surgical (Routine) - Closed Specialty Diagnoses / Procedures Referred By Inderjit t Referred To Contact Diagnoses Other deformities of toe(s) (acquired), left foot Cheilectomy left first metatarsal phalangeal joint Procedures Case request operating room: CHEILECTOMY([id number]) Param Son DPM Phone: tel: fax: Param Son DPM Phone: tel: fax: Referral ID Status Reason Start Date Expiration Date Visits Re quested Visits Authorized [id number] Closed 03/03/2020 04/02/2021 1 1 Encounter Details Date Type Department Care Team (Late st Contact Info) Description 03/03/[address] [facility] [address] [place] [address] Param Son DPM [address] [place] [address] Social History Tobacco Use Types [...] Orde r Schedule Case request operating room: CHEILECTOMY([id number]) Case Request Routine Once for 1 Oc currences starting 03/03/2020 until 03/03/2020 documented as of this encounter Visit Diagnoses Diagnosis Prophylactic antibiotic- Primary Encounter for long-term (current) use of antibiotics documented in this encounter Additional Health Concerns Infection Onset Date Last Indicated Resolved Time COVID-19 Rule Out 03/15/2020 03/15/2020 03/16/2020 11:24 AM CDT documented as of this encounter Care Teams Chief Sales Officer Relationship Specialty Start Date End Date Tyree Beasley MD [address] [place] [phone] PCP - General FAMILY PRACTICE 02/27/20 documented as of this encounter
--- OUTSIDE RECORDS SUMMARY | 2025-04-27 09:43 | XMS_ITS | Encounter Summary ---
Author Organization [facility] Address [address] [place] [address] Care Team Providers Care Elephant Keeper Name Role Phone Tyree Beasley MD Primary Care Provider [phone] Encounter Details Date Type Department Care Team (Late st Contact Info) Description 03/11/2020 Prep for Procedure [facility] [address] [place] [address] Param Son, DPM [address] [place] [address] Social History Tobacco Use Types [...] DETECTED NOT DETECTED 03/16/2020 11:24 AM CDT Zapproved [facility] Comment: A Not Detected (negative) test [...] providers and patients using the following websites: https://www.[facility].Myla/home/Covid-19/HCP/[facility]/fact- sheet.html https://www.[facility].Myla/home/Covid-19/Patients/ Quest[facility]/fact-sheet.html This test has been authorized by the FDA under an Emergency Use Authorization (EUA) for use by authorized laboratories. Due to the current public health emergency, [facility] is receiving a high volume of samples [...] about COVID-19 can be found at the [facility] website: www.[facility].Myla/Covid19. Test performed at [facility] [address] [place] [address] Director: AROLDO BLACK DO,MPH NASOPHARYNGEAL SWAB / Unknown 03/15/2020 10:35 AM CDT us Param [facility] MICROBIOLOGY - GENERAL ORDERABLE S Final Result Zapproved [facility] [address] [place] [address], documented in this encounter Visit Diagnoses Diagnosis Pre-op testing- Primary Preoperative examination, unspecified documented in this encounter Additional Health Concerns Infection Onset Date Last Indicated Resolved Time COVID-19 Rule Out 03/15/2020 03/15/2020 03/16/2020 11:24 AM CDT documented as of this encounter Care Teams Elephant Keeper Relationship Specialty Start Date End Date Tyree Beasley MD [address] [place] [phone] PCP - General FAMILY PRACTICE 02/27/20 documented as of this encounter
--- OUTSIDE RECORDS SUMMARY | 2025-04-27 09:43 | XMS_ITS | Clinical Summary ---
Author Organization [facility] Address [address] [place] [address] Care Team Providers Care Voice Teacher Name Role Phone Tyree Beasley MD Primary Care Provider [phone] Allergies No known active allergies Medications escitalopram [...] this topic Medical Devices Implanted Type Area Tombstone Setter Device Identifier Shelf Expiration Date Model / Serial / Lot Wire Fixation 9in .035in Tan Stainless Steel 2 End Nasrin Point - [id number] Implanted:Qty: 1 on 03/18/2020 by Param Son DPM at [facility] [employer] Wire Left: Toe [employer] [id number] / / Description:Implanted into l eft great toe. Insurance MEDICARE Advance Directives * Full Code (Latest Code Status on File) Date Activated Date Inactivated Comments 03/18/2020 9:05 AM 03/18/2020 1:51 PM Care Teams Voice Teacher Relationship Specialty Start Date End Date Tyree Beasley MD [address] [place] [address] PCP - General FAMILY PRACTICE 02/27/20
--- OUTSIDE RECORDS SUMMARY | 2025-04-27 09:44 | XMS_ITS | Encounter Summary ---
Author Organization [facility] Address [address] [facility] [place] [address] Care Team Providers Care Director Life Sciences Name Role Phone Tyree Beasley MD Primary Care Provider [phone] Encounter Details Date Type Department Care Team (Late st Contact Info) Description 03/25/2025 Lab Requisition [facility] - DermPath Lab [address] [facility], [place] [address] Sarah Ramires DO [address] [facility] 3 [place] [address] Social History Tobacco Use Types Packs/Day Years Used Date Smoking Tobacco: Never Smokeless Tobacco: Never Alcohol Use Standard Drinks/Week Comments Yes 0 (1 standard drink = 0.6 oz pur e alcohol) Comments Unknown Sex and Gender Information Value Date Recorded Sex Assigned at Not on file 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 Billing Codes Specimen Charges Stain Charges [id number] 1 6:17 PM CDT DERMATOPATHOLOGY LABORATORY Embedded Images 6:17 PM CDT DERMATOPATHOLOGY LABORATORY Pathology/Cytolo gy TISSUE SPECIMEN FROM SKIN / Unknown 03/25/2025 11:14 AM CDT 03/26/2025 9:35 AM CDT us Sarah Ramires DO LAB - PATHOLOGY/CYTOLOGY ORDERABLES Final Result DERMATOPATHOLOGY LABORATORY [facility] - Department of Dermatology [address] [phone] documented in this encounter Visit Diagnoses Not on filedocumented in this encounter Care Teams Director Life Sciences Relationship Specialty Start Date End Date Tyree Beasley MD [address] [place] [address] PCP - General 05/15/13 documented as of this encounter
--- OUTSIDE RECORDS SUMMARY | 2025-04-27 09:44 | XMS_ITS | Clinical Summary ---
Author Organization [facility] Address [address] [place] [address] Care Team Providers Care Salvage Grinder Name Role Phone Tyree Beasley MD Primary Care Provider [phone] Source Comments [facility],non-owned Affiliates and Associated Physician Practices is amultiple site organization consisting of ambulatory clinics and hospital sitesin [place], [place], [place] and [place]. This disclosure is being madepursuant to the Care Everywhere program and may not contain all information available regarding this patient. 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 Razia Patterson. These tests need not be, and therefore are not, approved by the [place] Food and Drug Administration. The tests are used for clinical purposes. Billing Codes Specimen Charges Stain Charges [id number] 1 5 6:17 PM CDT DERMATOPATHOLOGY LABORATORY Embedded Images 5 6:17 PM CDT DERMATOPATHOLOGY LABORATORY Pathology/Cytolo gy TISSUE SPECIMEN FROM SKIN / Unknown 03/25/2025 11:14 AM CDT 03/26/2025 9:35 AM CDT Sarah Ramires DO LAB - PATHOLOGY/CYTOLOGY ORDERABLES Final Result DERMATOPATHOLOGY LABORATORY [facility] - Department of Dermatology [address] [phone] from Last 3 Months Insurance [facility] MEDICARE [facility] Care Teams Salvage Grinder Relationship Specialty Start Date End Date Tyree Beasley MD [address] [place] [address] PCP - General 05/15/13
[2025-04-27 09:52] VITALS: BP 137/70; PULSE 70; RESP 18; TEMP 37; O2SAT 98
--- NOTE | 2025-04-27 10:17 | ED.SKABFB ---
HPI - Skin/Abscess/Foreign Bdy General Chief complaint: Skin/Abscess/Foreign Body Stated complaint: rash Time Seen by Provider: 04/27/25 10:17 Source: patient Mode of arrival: ambulatory Limitations: no limitations History of Present Illness HPI narrative: 71-year-old female presents with complaint of itchy rash to bilateral arms for 3 days. 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 Using calamine lotion with no relief. Reports rash spreading to face and neck today. All systems reviewed and negative except as noted above. Related Data Home Medications ?Medication ?Instructions ?Recorded ?Confirmed ?Last Taken ?Type multivitamin 1 tablet PO DAILY 02/28/20 04/18/25 12/06/22 History ibuprofen 200 mg tablet 200 mg PO QPM PRN Pain 07/22/21 04/18/25 12/06/22 History cholecalciferol (vitamin D3) 25 25 mcg PO DAILY 11/25/22 04/18/25 12/06/22 History mcg (1,000 unit) tablet (Vitamin D3) calcium 600 mg (as cap PO 08/27/24 04/18/25 Unknown History carbonate)-vitamin D3 12.5 mcg (500 unit) capsule fluticasone fur. 100 mcg-umeclid 1 inh inhalation DAILY 04/27/25 04/27/25 Unknown History 62.5 mcg-vilant 25 mcg inhalat.powder (Trelegy Ellipta) Allergies Allergy/AdvReac Type Severity Reaction Status Date / Time No Known Allergies Allergy Verified 04/27/25 09:53 [facility] Past Medical History Medical History COPD (chronic obstructive pulmonary disease) Colitis Mixed hyperlipidemia Surgical History Surgical History History of cataract surgery (~03/26/21) Family History Family History Mother Family history of malignant neoplasm of breast in first degree relative Other Family history of malignant neoplasm of breast Social History Social History Smoking status: Never smoker Alcohol intake: current Alcohol use details: social Substance use type: does not use Lack of Transportation: No Lack of Food: Never True Current Housing: I Have Housing Concerned About Future Housing: No Difficulty Paying Gas/Electric Bills: No Difficulty Paying for Meds: No Currently Unemployed: No Education: High School Diploma/GED Difficulty w/ Childcare or Family Care: No Living arrangements: with family Spiritual care concerns: No Comments At time of signature, agree with nursing past medical, surgical, social and family history. There is no relevant family history pertinent to the presenting complaint. Exam Narrative: GENERAL: This is a well-nourished, well-developed patient, in no apparent distress. HEAD: normocephalic, atraumatic. EYES: PERRL. Sclera clear/white. Vision is grossly intact. EARS: External ears normal NOSE: External nose normal NECK: Neck supple, non-tender without lymphadenopathy, masses or thyromegaly. CARDIOVASCULAR: Regular rate and rhythm without murmurs, gallops, or rubs. RESPIRATORY: Clear to auscultation. Breath sounds equal bilaterally. No wheezes, rales, or rhonchi. SKIN: warm, Dry, intact, good texture and turgor. Erythematous vesicular rash to bilateral arms, left side of forehead and left side of neck. NEURO: awake, alert, and oriented to person, place and time. There were no obvious focal neurologic abnormalities. EXTREMITIES: No joint tenderness, effusion, or edema noted. Course Course Level of Care: Express Care Visit Vital Signs Vital signs: Vital Signs Temperature 37.0 C 04/27/25 09:52 Pulse Rate 70 04/27/25 09:52 Respiratory Rate 18 04/27/25 09:52 Blood Pressure 137/70 04/27/25 09:52 Pulse Oximetry 98 04/27/25 09:52 Oxygen Delivery Room Air 04/27/25 09:52 Temperature 37.0 C 04/27/25 09:52 Pulse Rate 70 04/27/25 09:52 Respiratory Rate 18 04/27/25 09:52 Blood Pressure 137/70 04/27/25 09:52 Pulse Oximetry 98 04/27/25 09:52 Oxygen Delivery Room Air 04/27/25 09:52 Reviewed MDM - Skin/Abscess/Foreign Bdy MDM Narrative Medical decision making narrative: patient given IM Kenalog while at [facility] today. Patient is going out of town and did not want to take prednisone taper. Will also prescribe triamcinolone, recommend daily antihistamine while treating allergic reaction. Patient is well-appearing, nontoxic. Agrees with plan of care. Differential Diagnosis Differential diagnosis: Likely urticaria, cellulitis, eczema, insect bites and contact dermatitis Discharge Plan Discharge Clinical Impression: Dermatitis due to plants, including poison gila, sumac, and oak Patient Disposition: Home Condition: Stable Instructions: Poison Gila (ED) Additional Instructions: You were given an intramuscular injection of a steroid, Kenalog, to treat allergic reaction. Apply prescription steroid cream to affected areas, avoid face. Take a daily antihistamine, such as Zyrtec, while treating allergic reaction. Follow-up with your primary care physician as needed. Patient Language: Cymraes Prescriptions: New triamcinolone acetonide 0.1 % cream 1 applic topical BID PRN (Reason: poison gila) Qty: 30 0RF No Action Trelegy Ellipta 100-62.5-25 mcg blister with device 1 inh inhalation DAILY ibuprofen 200 mg tablet 200 mg PO QPM PRN (Reason: Pain) albuterol sulfate 90 mcg/actuation HFA aerosol inhaler 2 inh inhalation Q4H PRN (Reason: shortness of breath or wheezing) Qty: 8.5 5RF multivitamin Tablet 1 tablet PO DAILY calcium carbonate-vitamin D3 600 mg-12.5 mcg (500 unit) capsule PO cholecalciferol (vitamin D3) [Vitamin D3] 25 mcg (1,000 unit) Tablet 25 mcg PO DAILY escitalopram oxalate 20 mg tablet 20 mg PO DAILY Qty: 90 1RF omeprazole 20 mg capsule,delayed release(DR/EC) 20 mg PO DAILY Qty: 90 1RF sumatriptan succinate 100 mg tablet See Rx Instructions PO .COMPLEX PRN (Reason: migraine headache) Qty: 9 1RF Rx Instructions: take 1 tab at onset of headache; if no relief, may repeat 1 tab after at least 2 hrs; max = 2 tabs/24 hrs orally PRN; atorvastatin 10 mg tablet 10 mg PO QHS Qty: 90 1RF Follow-up/Referrals: Margie Gallegos DO [Primary Care Provider] - Time of Disposition: 10:43
[2025-04-27] MEDS: TRIAMCINOLONE ACET INJ 40 MG/ML VIAL IM (10:27)
== END 2025-04-27 10:53 | disposition home or self-care (01) ==
PROVIDERS: Emergency Provider Nurse Practitioner Family; PCP Family Medicine
DX: L23.7 Allergic contact dermatitis due to plants, except food (principal); J44.9 Chronic obstructive pulmonary disease, unspecified; E78.2 Mixed hyperlipidemia
CPT/HCPCS: 96372; 99213; G0463; J3301

== ENCOUNTER 2025-08-09 14:44 | Outpatient (CLI) | payer MEDICARE, OTHER, SELFPAY ==
--- NOTE | ~2025-08-09 | CT_ITS ---
CT diagnostic chest wo con HISTORY:R91.8 - Other nonspecific abnormal finding of lung field COMPARISON: 04/15/2025. TECHNIQUE: Axial images of the chest were obtained without infusion of intravenous contrast. Dose optimization technique was utilized. FINDINGS: The examination demonstrates resolution of previously noted nodule in the superior segment of the left lower lobe. There is mild tree-in-bud opacities within the posterior segment of bilateral lower lobes are stable. No new pulmonary nodules seen. No focal consolidation, pleural effusions or pneumothorax. Cardiac size and mediastinal configuration are normal in appearance. No hilar or mediastinal lymphadenopathy is seen. The thoracic aorta is normal in caliber. Osseous structures are intact. Left renal cyst is stable. IMPRESSION: Resolution of previously noted nodule in the superior segment of the left lower lobe. Tree-in-bud nodular opacity in the posterior bilateral lower lobes are stable. No new pulmonary findings. All CT scans at this facility are performed using low dose modulation techniques as appropriate to perform exam including the following: automated exposure control; use of iterative reconstruction technique; adjustment of the mA and/or kV according to patient size (this includes techniques or standardized protocols for targeted exams where dose is matched to indication/reason for exam). Reviewed, dictated and finalized at location S. EHOLD COORDINATOR IMPRESSION: Resolution of previously noted nodule in the superior segment of the left lower lobe. Tree-in-bud nodular opacity in the posterior bilateral lower lobes are s table. No new pulmonary findings. All CT scans at this facility are performed using low dose modulation techniqu es as appropriate to perform exam including the following: automated exposure c ontrol; use of iterative reconstruction technique; adjustment of the mA and/or kV according to patient size (this includes techniques or standardized protocol s for targeted exams where dose is matched to indication/reason for exam).
--- OUTSIDE RECORDS SUMMARY | 2025-08-09 19:05 | XMS_ITS | Encounter Summary ---
Author Organization [facility] Address [address] [place] [address] Care Team Providers Care Per Diem Physical Therapist Name Role Phone Tyree Beasley MD Primary Care Provider [phone] Reason for Referral * Surgical (Routine) - Closed Specialty Diagnoses / Procedures Referred By Inderjit t Referred To Contact Diagnoses Other deformities of toe(s) (acquired), left foot Cheilectomy left first metatarsal phalangeal joint Procedures Case request operating room: CHEILECTOMY([id number]) Param Son DPM Phone: tel: fax: Param Son DPM Phone: tel: fax: Referral ID Status Reason Start Date Expiration Date Visits Re quested Visits Authorized [id number] Closed 03/03/2020 04/02/2021 1 1 Encounter Details Date Type Department Care Team (Late st Contact Info) Description 03/03/2020 Prep for Procedure [facility] [address] [place] [address] Param Son DPM [address] [place] [address] Social History Tobacco Use Types [...] Orde r Schedule Case request operating room: CHEILECTOMY([id number]) Case Request Routine Once for 1 Oc currences starting 03/03/2020 until 03/03/2020 documented as of this encounter Visit Diagnoses Diagnosis Prophylactic antibiotic- Primary Encounter for long-term (current) use of antibiotics documented in this encounter Additional Health Concerns Infection Onset Date Last Indicated Resolved Time COVID-19 Rule Out 03/15/2020 03/15/2020 03/16/2020 11:24 AM CDT documented as of this encounter Care Teams Per Diem Physical Therapist Relationship Specialty Start Date End Date Tyree Beasley MD [address] [place] [phone] PCP - General FAMILY PRACTICE 02/27/20 documented as of this encounter
--- OUTSIDE RECORDS SUMMARY | 2025-08-09 19:05 | XMS_ITS | Encounter Summary ---
Author Organization [facility] Address [address] [place] [address] Care Team Providers Care Site Identification Specialist Name Role Phone Tyree Beasley MD Primary Care Provider [phone] Encounter Details Date Type Department Care Team (Late st Contact Info) Description 03/11/2020 Prep for Procedure [facility] [address] [place] [address] Param Son, DPM [address] [place] [address] Social History Tobacco Use Types [...] DETECTED NOT DETECTED 03/16/2020 11:24 AM CDT [facility] Comment: A Not Detected (negative) test [...] providers and patients using the following websites: https://www.Gateway EDI.[employer]/home/Covid-19/HCP/QuestIVD/fact- sheet.html https://www.Gateway EDI.[employer]/home/Covid-19/Patients/ QuestIVD/fact-sheet.html This test has been authorized by the FDA under an Emergency Use Authorization (EUA) for use by authorized laboratories. Due to the current public health emergency, [facility] is receiving a high volume of samples [...] about COVID-19 can be found at the [facility] website: www.AC [employer]/Covid19. Test performed at [facility] [address] [place] [address] Director: AROLDO BLACK DO,MPH NASOPHARYNGEAL SWAB / Unknown 03/15/2020 10:35 AM CDT us Par[facility] MICROBIOLOGY - GENERAL ORDERABLE S Final Result [facility] [address] [place] [address], documented in this encounter Visit Diagnoses Diagnosis Pre-op testing- Primary Preoperative examination, unspecified documented in this encounter Additional Health Concerns Infection Onset Date Last Indicated Resolved Time COVID-19 Rule Out 03/15/2020 03/15/2020 03/16/2020 11:24 AM CDT documented as of this encounter Care Teams Site Identification Specialist Relationship Specialty Start Date End Date Tyree Beasley MD [address] [place] [phone] PCP - General FAMILY PRACTICE 02/27/20 documented as of this encounter
--- OUTSIDE RECORDS SUMMARY | 2025-08-09 19:05 | XMS_ITS | Clinical Summary ---
Author Organization [facility] Address [address] [place] [address] Care Team Providers Care Workday Senior Associate Name Role Phone Tyree Beasley MD Primary Care Provider [phone] Allergies No known active allergies Medications escitalopram [...] Vaccine: 50+ Years (2 of 2 - PCV20 or PCV21) 08/03/2020 08/03/2019 COVID-19 Vaccine ( - 2024-2 6 season) 2025 Influenza Adult (#1) 2025 08/03/2019, 06/29/2018 RSV Immunization or 60+ Years (1 - 1-dose 75+ series) 2026 Zoster Vaccines Completed 11/23/2019, 08/03/2019, 08/13/2015 Hepatitis A Vaccines Aged Out No long er eligible based on patient's age to complete this topic Meningococcal B Vaccine Aged Out No l onger eligible based on patient's age to complete this topic Meningococcal Vaccine Aged Out No jairo clint eligible based on patient's age to complete this topic RSV Immunizations Under 20 Months Aged Out No longer eligible b ased on patient's age to complete this topic Medical Devices Implanted Type Area Content Designer Device Identifier Shelf Expiration Date Model / Serial / Lot Wire Fixation 9in .035in Tan Stainless Steel 2 End Nasrin Point - [id number] Implanted:Qty: 1 on 03/18/2020 by Param Son DPM at [facility] Wire Left: Toe [employer] [id number] / / Description:Implanted into l eft great toe. Insurance MEDICARE Advance Directives * Full Code (Latest Code Status on File) Date Activated Date Inactivated Comments 03/18/2020 9:05 AM 03/18/2020 1:51 PM Care Teams Workday Senior Associate Relationship Specialty Start Date End Date Tyree Beasley MD [address] [place] [phone] PCP - General FAMILY PRACTICE 02/27/20
--- OUTSIDE RECORDS SUMMARY | 2025-08-09 19:06 | XMS_ITS | Clinical Summary ---
Author Organization [facility] Address [address] [place] [address] Care Team Providers Care Law Office Receptionist Name Role Phone Tyree Beasley MD Primary Care Provider [phone] Source Comments [facility],non-owned Affiliates and Associated Physician Practices is amultiple site organization consisting of ambulatory clinics and hospital sitesin [place], [place] and [place]. This disclosure is being madepursuant to the Care Everywhere program and may not contain all information available regarding this patient. Last updated 18.[facility] Medications * Be aware that medications may [...] 20 mg by mouth DAILY. 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
--- OUTSIDE RECORDS SUMMARY | 2025-08-09 19:06 | XMS_ITS | Encounter Summary ---
Author Organization [facility] Address [address] [address] Care Team Providers Care Chemistry Technical Officer Name Role Phone Tyree Beasley MD Primary Care Provider [phone] Encounter Details Date Type Department Care Team (Late st Contact Info) Description 03/25/2025 Lab Requisition [facility] - DermPath Lab [address] [place] [phone] Sarah Ramires DO [address] [facility] [address] [place] [address] Social History Tobacco Use Types Packs/Day Years Used Date Smoking Tobacco: Never Smokeless Tobacco: Never Alcohol Use Standard Drinks/Week Comments Yes 0 (1 standard drink = 0.6 oz pur e alcohol) Comments Unknown Sex and Gender Information Value Date Recorded Sex Assigned at Not on file 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 Gender Identity Not on file Sexual Orientation Not on file documented as of this encounter Plan of Treatment Not on file documented as of this encounter Procedures Procedure Name Priority Date/Time Associated Diagnosis Comments DERMATOPATHOLOGY Routine 03/25/2025 11:1 4 AM CDT documented in this encounter Results * DERMATOPATHOLOGY (03/25/2025 11:14 AM CDT) Case Report Dermatopathology Report Case: [id number] Authorizing Provider: Sarah Ramires DO Collected: 03/25/2025 11:14 AM Ordering Location: [facility] - Received: 03/26/2025 09:35 [...] characteristic determined by the Dermatopathology Laboratory at [facility], directed by Dr. Razia Patterson. These tests need not be, and therefore are not, approved by the [place] Food and Drug Administration. The tests are used for clinical purposes. Billing Codes Specimen Charges Stain Charges 16187 1 6:17 PM CDT DERMATOPATHOLOGY LABORATORY Embedded Images 6:17 PM CDT DERMATOPATHOLOGY LABORATORY Pathology/Cytolo gy TISSUE SPECIMEN FROM SKIN / Unknown 03/25/2025 11:14 AM CDT 03/26/2025 9:35 AM CDT us Sarah Ramires DO LAB - PATHOLOGY/CYTOLOGY ORDERABLES Final Result DERMATOPATHOLOGY LABORATORY [facility] - Department of Dermatology [address] [phone] documented in this encounter Visit Diagnoses Not on filedocumented in this encounter Care Teams Chemistry Technical Officer Relationship Specialty Start Date End Date Tyree Beasley MD [address] [place] [address] PCP - General 05/15/13 documented as of this encounter
--- OUTSIDE RECORDS SUMMARY | 2025-08-09 19:06 | XMS_ITS | Clinical Summary ---
Author Organization [facility] Address [address] [place] [address] Care Team Providers Care Mental Health Program Specialist Name Role Phone Tyree Beasley MD [...] on file Legal Sex Female 2:01 PM INDUSTRIAL SALES REPRESENTATIVE Gender Identity Not on file Sexual Orientation Not on file Last Filed Vital Signs Vital Sign Reading Time Taken Comments Blood Pressure 125/77 12/16/2016 12:00 PM CDT Pulse 97 12/16/2016 12:00 PM CDT Temperature - - Respiratory Rate - - Oxygen Saturation 92% 12/16/2016 12:00 PM CDT Inhaled Oxygen Concentration - - Weight 68 kg (150 lb) 11/14/2019 9:12 AM INDUSTRIAL SALES REPRESENTATIVE Height 160.7 cm (5' 3.25) 11/14/2019 9:12 AM CS T Body Mass Index 26.36 11/14/2019 9:12 AM INDUSTRIAL SALES REPRESENTATIVE Plan of Treatment Not on file Insurance [employer] SENIOR SUPPLEMENT MEDICARE MEDICARE [employer] SENIOR SUPPLEMENT Care Teams Mental Health Program Specialist Relationship Specialty Start Date End Date Tyree Beasley MD [address] [place], [place] [phone] PCP - General 12/05/17
== END 2025-08-09 14:45 | disposition home or self-care (01) ==
LOC: ANHIMG 14:44
PROVIDERS: PCP Family Medicine; Visit Provider Nurse Practitioner Family
DX: R91.8 Other nonspecific abnormal finding of lung field (principal)
CPT/HCPCS: 71250

== ENCOUNTER 2025-09-08 12:16 | Emergency (ER) | payer MEDICARE, OTHER, SELFPAY ==
--- NOTE | ~2025-09-08 | US_ITS ---
EXAMINATION: US venous doppler LE , 09/08/2025 13:50 RUBBER GOODS SUPERVISOR HISTORY: pain behind knee, goes down leg COMPARISON: None Technique: Gibbons-scale and color Doppler images were attempted of the lower saphenofemoral junction, common femoral vein,superficial femoral vein, proximal deep femoral vein, proximal deep femoral vein, popliteal vein and posterior tibial veins. Findings: Deep Venous System:Normal flow, augmentation and compressibility. No echogenic thrombus identified. Superficial Venous SystemNo superficial thrombophlebitis. Soft tissues: Soft tissues are unremarkable. Impression: Negative for DVT. Reviewed, dictated and finalized at location P. ER GOODS SUPERVISOR Impression: Negative for DVT.
--- NOTE | ~2025-09-08 | XR_ITS ---
Examination: XR knee RT 3V Clinical History: atraumatic pain Comparison: None Technique: 3 views right knee Findings/impression: 1. No fracture, dislocation, or effusion right knee. 2. No significant degenerative changes. Reviewed, dictated and finalized at location R. GE LPN
[2025-09-08 12:27] VITALS: BP 149/75; PULSE 63; RESP 20; TEMP 36.4; O2SAT 100
--- OUTSIDE RECORDS SUMMARY | 2025-09-08 12:59 | XMS_ITS | Clinical Summary ---
Author Organization [facility] Address [address] [place] [address] Care Team Providers Care Semiconductor Packages Platemaker Name Role Phone Tyree Beasley MD Primary Care Provider Source Comments [facility] [employer] [facility],non-owned Affiliates and Associated Physician Practices is amultiple site organization consisting of ambulatory clinics and hospital sitesin [place], [place], [place] and [place]. This disclosure is being madepursuant to the Care Everywhere program and may not contain all information available regarding this patient. 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
--- OUTSIDE RECORDS SUMMARY | 2025-09-08 12:59 | XMS_ITS | Clinical Summary ---
Author Organization [facility] Address [address] [place] [address] Care Team Providers Care Track Layer Head Name Role Phone Tyree Beasley MD Primary [...] on file Legal Sex Female 2:01 PM PROCESS PUMPER Gender Identity Not on file Sexual Orientation Not on file Last Filed Vital Signs Vital Sign Reading Time Taken Comments Blood Pressure 125/77 12/16/2016 12:00 PM CDT Pulse 97 12/16/2016 12:00 PM CDT Temperature - - Respiratory Rate - - Oxygen Saturation 92% 12/16/2016 12:00 PM CDT Inhaled Oxygen Concentration - - Weight 68 kg (150 lb) 11/14/2019 9:12 AM PROCESS PUMPER Height 160.7 cm (5' 3.25) 11/14/2019 9:12 AM CS T Body Mass Index 26.36 11/14/2019 9:12 AM PROCESS PUMPER Plan of Treatment Not on file Insurance [employer] SENIOR SUPPLEMENT MEDICARE MEDICARE [employer] [address] Care Teams Track Layer Head Relationship Specialty Start Date End Date Tyree Beasley MD [address] [place], [place] [phone] PCP - General 12/05/17
--- OUTSIDE RECORDS SUMMARY | 2025-09-08 12:59 | XMS_ITS | Encounter Summary ---
Author Organization [facility] Address [address] [place] [address] Care Team Providers Care Audio Visual Arts Director Name Role Phone Tyree Beasley MD Primary Care Provider [phone] Encounter Details Date Type Department Care Team (Late st Contact Info) Description 03/25/2025 Lab Requisition [facility] - DermPath Lab [address] [place] [phone] Sarah Ramires DO [address] 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 Gender Identity Not on file Sexual Orientation Not on file documented as of this encounter Plan of Treatment Not on file documented as of this encounter Procedures Procedure Name Priority Date/Time Associated Diagnosis Comments DERMATOPATHOLOGY Routine 03/25/2025 11:1 4 AM CDT documented in this encounter Results * DERMATOPATHOLOGY (03/25/2025 11:14 AM CDT) Case Report Dermatopathology Report Case: [id number] Authorizing Provider: Sarah Ramires DO Collected: 03/25/2025 11:14 AM Ordering Location: [facility] - Received: 03/26/2025 09:35 AM [...] characteristic determined by the Dermatopathology Laboratory at [facility], directed by Dr. Razia Patterson. These tests need not be, and therefore are not, approved by the [place] Food and Drug Administration. The tests are used for clinical purposes. Billing Codes Specimen Charges Stain Charges 92353 1 6:17 PM CDT DERMATOPATHOLOGY LABORATORY Embedded Images 6:17 PM CDT DERMATOPATHOLOGY LABORATORY Pathology/Cytolo gy TISSUE SPECIMEN FROM SKIN / Unknown 03/25/2025 11:14 AM CDT 03/26/2025 9:35 AM CDT us Sarah Ramires DO LAB - PATHOLOGY/CYTOLOGY ORDERABLES Final Result DERMATOPATHOLOGY LABORATORY [facility] - Department of Dermatology [address] [phone] documented in this encounter Visit Diagnoses Not on filedocumented in this encounter Care Teams Audio Visual Arts Director Relationship Specialty Start Date End Date Tyree Beasley MD [address] [place] [address] PCP - General 05/15/13 documented as of this encounter
--- OUTSIDE RECORDS SUMMARY | 2025-09-08 12:59 | XMS_ITS | Clinical Summary ---
Author Organization [facility] Address [address] [place] [address] Care Team Providers Care Wellness Coordinator Name Role Phone Tyree Beasley MD Primary Care Provider [phone] Allergies No known active allergies Medications escitalopram [...] this topic Medical Devices Implanted Type Area Prize Coordinator Device Identifier Shelf Expiration Date Model / Serial / Lot Wire Fixation 9in .035in Tan Stainless Steel 2 End Nasrin Point - [id number] Implanted:Qty: 1 on 03/18/2020 by Param Son DPM at [facility] Wire Left: Toe [employer] [id number] / / Description:Implanted into l eft great toe. Insurance MEDICARE Advance Directives * Full Code (Latest Code Status on File) Date Activated Date Inactivated Comments 03/18/2020 9:05 AM 03/18/2020 1:51 PM Care Teams Wellness Coordinator Relationship Specialty Start Date End Date Tyree Beasley MD [address] [place] [phone] PCP - General FAMILY PRACTICE 02/27/20
--- OUTSIDE RECORDS SUMMARY | 2025-09-08 12:59 | XMS_ITS | Encounter Summary ---
Author Organization [facility] Address [address] [place] [address] Care Team Providers Care Ruffler Name Role Phone Tyree Beasley MD Primary Care Provider [phone] Reason for Referral * Surgical (Routine) - Closed Specialty Diagnoses / Procedures Referred By Inderjit t Referred To Contact Diagnoses Other deformities of toe(s) (acquired), left foot Cheilectomy left first metatarsal phalangeal joint Procedures Case request operating room: CHEILECTOMY([id number]) Param Son DPM Phone: tel: fax: Param Son DPM Phone: tel: fax: Referral ID Status Reason Start Date Expiration Date Visits Re quested Visits Authorized [id number] Closed 03/03/2020 04/02/2021 1 1 Encounter Details Date Type Department Care Team (Late st Contact Info) Description 03/03/2020 Prep for Procedure [facility] [address] [place] [address] Param Son DPM [address] [place] [address] Social History Tobacco Use Types [...] Orde r Schedule Case request operating room: CHEILECTOMY([id number]) Case Request Routine Once for 1 Oc currences starting 03/03/2020 until 03/03/2020 documented as of this encounter Visit Diagnoses Diagnosis Prophylactic antibiotic- Primary Encounter for long-term (current) use of antibiotics documented in this encounter Additional Health Concerns Infection Onset Date Last Indicated Resolved Time COVID-19 Rule Out 03/15/2020 03/15/2020 03/16/2020 11:24 AM CDT documented as of this encounter Care Teams Ruffler Relationship Specialty Start Date End Date Tyree Beasley MD [address] [place] [phone] PCP - General FAMILY PRACTICE 02/27/20 documented as of this encounter
[2025-09-08 14:53] VITALS: BP 147/81; PULSE 80; RESP 14; O2SAT 99
--- NOTE | 2025-09-08 16:12 | ED.GENADULT ---
HPI - General Adult General Chief complaint: Extremity Problem,Nontraumatic Stated complaint: POSTERIOR R KNEE PAIN Time Seen by Provider: 09/08/25 12:44 History of Present Illness HPI narrative: Patient started having some pain to the back of her right knee, does not recall any recent injuries, not notice any swelling. Related Data Home Medications ?Medication ?Instructions ?Recorded ?Confirmed ?Last Taken ?Type multivitamin 1 tablet PO DAILY 02/28/20 08/26/25 12/06/22 History ibuprofen 200 mg tablet 200 mg PO QPM PRN Pain 07/22/21 08/26/25 12/06/22 History cholecalciferol (vitamin D3) 25 25 mcg PO DAILY 11/25/22 08/26/25 12/06/22 History mcg (1,000 unit) tablet (Vitamin D3) calcium 600 mg (as cap PO 08/27/24 08/26/25 Unknown History carbonate)-vitamin D3 12.5 mcg (500 unit) capsule fluticasone fur. 100 mcg-umeclid 1 inh inhalation DAILY 04/27/25 08/26/25 Unknown History 62.5 mcg-vilant 25 mcg inhalat.powder (Trelegy Ellipta) Allergies Allergy/AdvReac Type Severity Reaction Status Date / Time No Known Allergies Allergy Verified 09/08/25 12:17 Review of Systems Review of Systems: All systems reviewed & are unremarkable except as noted in HPI and below PMFSH Past Medical History Medical History COPD (chronic obstructive pulmonary disease) Colitis Mixed hyperlipidemia Surgical History Surgical History History of cataract surgery (~03/26/21) Family History Family History Mother Family history of malignant neoplasm of breast in first degree relative Other Family history of malignant neoplasm of breast Social History Social History Smoking status: Never smoker Alcohol intake: current Alcohol use details: social Substance use type: does not use Lack of Transportation: No Lack of Food: Never True Current Housing: I Have Housing Concerned About Future Housing: No Difficulty Paying Gas/Electric Bills: No Difficulty Paying for Meds: No Currently Unemployed: No Education: High School Diploma/GED Difficulty w/ Childcare or Family Care: No Living arrangements: with family Spiritual care concerns: No Exam Narrative: EXAMINATION OF ORGAN SYSTEMS/BODY AREAS: Constitutional: Vital signs per nursing GENERAL:No acute distress, non-toxic appearing. HEAD: Normal with no signs of head trauma. EYES: EOMI, conjunctiva normal ENT: Hearing grossly intact LUNGS: Nonlabored breathing. HEART: Regular rate and rhythm, normal regular DP pulses bilaterally ABD: Soft, nontender to palpation EXT: Normal range of motion SKIN: No rashes or lesions. NEURO: Alert. No gross focal sensory or strength deficits. PSYCH: Normal affect Course Vital Signs Vital signs: Vital Signs Temperature 97.6 F 09/08/25 12:27 Pulse Rate 63 09/08/25 12:27 Respiratory Rate 20 09/08/25 12:27 Blood Pressure 149/75 H 09/08/25 12:27 Pulse Oximetry 100 09/08/25 12:27 Oxygen Delivery Room Air 09/08/25 12:27 Temperature 97.6 F 09/08/25 12:27 Pulse Rate 80 09/08/25 14:53 Respiratory Rate 14 09/08/25 14:53 Blood Pressure 147/81 H 09/08/25 14:53 Pulse Oximetry 99 09/08/25 14:53 Oxygen Delivery Room Air 09/08/25 12:27 MDM MDM Narrative Medical decision making narrative: Patient presenting here with right knee pain, no recent injuries X-ray negative for acute abnormality, DVT ultrasound is negative. Discussed findings with patient, and will have her follow with Orthopedics with return precautions. Patient agreeable to plan Differential Diagnosis Differential Diagnosis: arthritis, DVT Imaging Data Radiologist's impression: ITS Impressions Venous Doppler Study 09/08/25 14:26 Impression: Negative for DVT. Discharge Plan Discharge Clinical Impression: Knee pain Patient Disposition: Home Condition: Stable Instructions: Knee Pain (ED) Additional Instructions: Please follow-up with the orthopedic doctor, you can try the medication as prescribed, and come back for any further issues. Patient Language: Faroese Prescriptions: No Action Trelegood Ellipta 100-62.5-25 mcg blister with device 1 inh inhalation DAILY ibuprofen 200 mg tablet 200 mg PO QPM PRN (Reason: Pain) albuterol sulfate 90 mcg/actuation HFA aerosol inhaler 2 inh inhalation Q4H PRN (Reason: shortness of breath or wheezing) Qty: 8.5 5RF multivitamin Tablet 1 tablet PO DAILY calcium carbonate-vitamin D3 600 mg-12.5 mcg (500 unit) capsule PO cyclobenzaprine 5 mg tablet 5 mg PO BID PRN (Reason: muscle spasm) Qty: 20 0RF cholecalciferol (vitamin D3) [Vitamin D3] 25 mcg (1,000 unit) Tablet 25 mcg PO DAILY sumatriptan succinate 100 mg tablet See Rx Instructions PO .COMPLEX PRN (Reason: migraine headache) Qty: 9 1RF Rx Instructions: take 1 tab at onset of headache; if no relief, may repeat 1 tab after at least 2 hrs; max = 2 tabs/24 hrs orally PRN; atorvastatin 10 mg tablet 10 mg PO QHS Qty: 90 1RF escitalopram oxalate 20 mg tablet 20 mg PO DAILY Qty: 90 1RF omeprazole 20 mg capsule,delayed release(DR/EC) 20 mg PO DAILY Qty: 90 1RF Follow-up/Referrals: Mani Fung MD [Physician, Orthopedics] - 3 Days Margie Gallegos DO [Primary Care Provider, Family Practice]
== END 2025-09-08 14:54 | disposition home or self-care (01) ==
PROVIDERS: Emergency Provider Emergency Medicine; PCP Family Medicine
DX: M25.561 Pain in right knee (principal); J44.9 Chronic obstructive pulmonary disease, unspecified; E78.2 Mixed hyperlipidemia; Z98.49 Cataract extraction status, unspecified eye; M79.661 Pain in right lower leg
CPT/HCPCS: 73562; 93971; 99284